=== PATIENT | male | born 1995 | race Caucasian/White ===

== ENCOUNTER 2017-04-03 10:33 | Inpatient (IN) | payer OTHER ==
[~2017-04-03] VITALS: Ht 177.8 cm; Wt 109.5 kg
--- NOTE | 2017-04-09 13:22 | MH ---
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 He is admitted at this time for correction of the above-mentioned problem. PAST MEDICAL HISTORY Past surgical history reveals that he has had third molars removed in the past. He has also had a surgical rapid palatal expansion performed in the past without difficulty. He had normal and development. MEDICATION He takes no medications. ALLERGIES He has no allergies. FAMILY HISTORY His mother is alive and well. Father is . 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 He does not use tobacco, alcohol or drugs. REVIEW OF SYSTEMS HEAD: No history of seizure disorders. He did have a concussion in 2006, he gets headaches two to four times a month. EYES: He wears contact lenses. He does not have double vision, tearing or blind spots. NOSE: No history of bleeding, obstruction, discharge. MOUTH: Mouth problems as noted above. THROAT: No hoarseness, soreness, thyroid disease. LYMPH NODES: No local or general glandular enlargement. RESPIRATORY: No history of tuberculosis, shortness of breath, cough, asthma, COPD or sleep apnea. CARDIOVASCULAR: No history of precordial pain, hypertension or hypotension. No heart murmur, shortness of breath on exertion, edema, phlebitis, heart surgery or rheumatic fever. GASTROINTESTINAL: No history of gallbladder disease, peptic ulcer disease. GENITOURINARY: No history of urinary tract infections, kidney disease or venereal disease. MUSCULOSKELETAL: No pain, limitation of movement or muscular weakness. ENDOCRINE: No history of diabetes, hormone therapy, growth abnormality. HEMATOLOGICAL: No history of anemia, bleeding tendencies, Rh incompatibility. NEUROLOGIC: No sensory or motor disturbances. PHYSICAL EXAMINATION GENERAL: Physical examination reveals alert, oriented male. VITAL SIGNS: He is 5 feet 10 inches, he weighs 236 pounds and blood pressure is 131/83, 90% O2 sat on room air. His pulse is 78 and regular. HEAD: Head is normocephalic. There are no masses noted. NECK: Neck is supple. There is no thyroid enlargement. EYES: ROSHNI. Fundi benign. EARS: TMs intact. MOUTH: The patient has maxillary hypoplasia and mandibular asymmetry. CHEST: Chest is clear to auscultation. HEART: Regular sinus rhythm without thrill, murmur or gallop. Peripheral pulses are full and equal throughout. ABDOMEN: Abdomen is soft. There are no masses or organomegaly present. Bowel sounds are present. CRANIAL NERVES: Cranial nerves II-XII intact. REFLEXES: Deep tendon reflexes are symmetric and physiologic. ASSESSMENT The patient is informed of the plan for orthognathic surgery. He understands the possibility of trigeminal nerve paresthesia in the areas of surgery and he accepts the treatment plan. RIKKI Live /12:50 PM /1:10 PM
[2017-04-10] MEDS ORDERED: BACITRACIN TOP OINT 15 GM TUBE ONE (10:49)
[2017-04-10] MEDS ORDERED: MICROFIBRILLAR COLLAGEN HEMOSTAT 1 GM PKT ONE (10:49)
[2017-04-10] MEDS ORDERED: THROMBIN (TOPICAL) 5,000 UNIT VIAL ONE (10:49)
[2017-04-10] MEDS ORDERED: LIDOCAINE 1%/EPINEPHrine 1:100,000 SOLN 20 ML VIAL ONE (10:49)
[2017-04-10] MEDS ORDERED: methylPREDNISolone SOD SUCC 125 MG/2 ML VIAL ONE (10:49)
[2017-04-10] MEDS ORDERED: CHLORHEXIDINE GLUCONATE 0.12% 15 ML CUP ONE (10:49)
[2017-04-10] MEDS ORDERED: CHLORHEXIDINE GLUCONATE 2 % 1 PACK (2 CLOTHS) TOPICAL PRN (11:00)
[2017-04-10] MEDS ORDERED: LACTATED RINGER'S 1000 ML IV PRN (11:00)
[2017-04-10] MEDS ORDERED: METOPROLOL TARTRATE 25 MG TAB PO PRN (11:00)
[2017-04-10] MEDS ORDERED: INSULIN HUMAN REGULAR 1,000 UNITS/10 ML VIAL SQ PRN (11:00)
[2017-04-10] MEDS ORDERED: SODIUM CHLORID 0.9% 500 ML IV PRN (11:00)
[2017-04-10] MEDS ORDERED: POVIDONE IODINE 5% (ANTISEPSIS KIT) 4 APPLICATIONS EACH NARE PRN (11:00)
[2017-04-10] MEDS ORDERED: ceFAZolin 1,000 MG/NS 100 ML IV SCH ×2 (11:00)
[2017-04-10 11:31] VITALS: BP 151/97; PULSE 94; RESP 18; TEMP 98.6; O2SAT 97
[2017-04-10] MEDS ORDERED: NITROGLYCERIN 50 MG/DEXTROSE 5% SOLN 250 ML BTL IV ONE (12:00)
[2017-04-10] MEDS ORDERED: PROPOFOL 200 MG/20 ML AMP IV ONE (12:00)
[2017-04-10] MEDS ORDERED: NEOSTIGMINE 3 MG/3 ML SYR IV ONE (12:00)
[2017-04-10] MEDS ORDERED: SODIUM CHLORID 0.9% 500 ML INJ 500 ML IV ONE (12:00)
[2017-04-10] MEDS ORDERED: PHENYLEPH/NS 1000 MCG/10 ML SYR IV ONE (12:00)
[2017-04-10] MEDS ORDERED: ONDANSETRON HCL 4 MG/2 ML VIAL IV PUSH ONE (12:00)
[2017-04-10] MEDS ORDERED: LACTATED RINGER'S 1000 ML INJ 2,000 ML IV ONE (12:00)
[2017-04-10] MEDS ORDERED: MIDAZOLAM HCL 2 MG/2 ML VIAL ONE (12:52)
[2017-04-10] MEDS ORDERED: FAMOTIDINE 20 MG/2 ML VIAL ONE (12:52)
[2017-04-10] MEDS ORDERED: DEXAMETHASONE SOD PHOS 4 MG/ML VIAL ONE (12:52)
[2017-04-10] MEDS ORDERED: HYDROmorphone HCL PF 2 MG/ML VIAL ONE (14:11)
[2017-04-10] MEDS ORDERED: fentaNYL CITRATE 250 MCG/5 ML AMP ONE ×2 (14:12)
[2017-04-10] MEDS ORDERED: ACETAMINOPHEN 1000 MG/100 ML VIAL IV ONE (15:47)
[2017-04-10] MEDS ORDERED: MICROFIBRILLAR COLLAGEN HEMOSTAT 70 X 35 MM BANDAGE ONE ×2 (16:34→17:12)
[2017-04-10] MEDS ORDERED: BALANCED SALT SOLN OPHT IRRIG 15 ML BTL ONE (16:45)
[2017-04-10] MEDS ORDERED: MORPHINE SULFATE 30 MG/30 ML PCA ONE (18:16)
[2017-04-10] MEDS ORDERED: D5-1/2 NS + KCL 20 MEQ INJ 1,000 ML ONE (18:16)
--- NOTE | 2017-04-10 18:17 | HHI.PR ---
Immediate Post Op Note Procedure Date: Apr 10, 2017 Pre Op Diagnosis: maxillary hypoplasia, mandibular asymmetry Post Op Diagnosis: ree Surgeon: Dr. Gabriel Jasso Aircrewman(s): Dr. Lewis Garcia Procedure: [place] 1 Maxillary Osteotomy Intraoral Vertical Ramus Osteotomy Complications: none Estimated blood loss: 400cc Anesthesia: General, Local (2%lidocaine with 1:100,000 epi approx 10 cc) Drains: Other (NG Tube) Patient to: PACU Patient Condition: Good Date/Time of Procedure: SEE SURGICAL CARE RECORD Lewis Garcia DMD Apr 10, 2017 18:17
[2017-04-10] MEDS ORDERED: *PROMETHAZINE 25 MG/ML VIAL PERIprocedural use ONLY ONE (19:01)
[2017-04-10] MEDS ORDERED: ACETAMINOPHEN 650 MG SUPP RECTAL PRN (19:30)
[2017-04-10] MEDS ORDERED: NALOXONE HCL 0.4 MG/ML AMP IV PRN (19:30)
[2017-04-10] MEDS ORDERED: ACETAMINOPHEN 325MG/HYDROcodone 7.5MG/15ML UDC PO PRN (19:30)
[2017-04-10] MEDS ORDERED: ACETAMINOPHEN 325 MG TAB PO PRN (19:30)
[2017-04-10] MEDS ORDERED: DO NOT ADM ANY ANTICOAGULANT DRUGS PRN (19:45)
[2017-04-10 20:00] VITALS: BP 154/74; PULSE 103; PULSE 60; RESP 16; TEMP 98.8; O2SAT 98
[2017-04-10] MEDS: D5-1/2 NS + KCL 20 MEQ INJ 1,000 ML IV SCH (20:00)
[2017-04-10] MEDS: methylPREDNISolone SOD SUCC 125 MG/2 ML VIAL IV SCH (20:27)
[2017-04-10] MEDS: MORPHINE SULFATE 30 MG/30 ML PCA IV SCH (20:27)
[2017-04-10] MEDS: ceFAZolin 1,000 MG/NS 100 ML IV SCH ×2 (20:27)
[2017-04-10 22:00] VITALS: BP 155/88; PULSE 88; RESP 16; TEMP 98.6; O2SAT 95
[2017-04-10] MEDS: PHENYLEPHRINE 2.5 MG/BROMPHENIRAMINE 1 MG PER 5 ML UDC PO SCH (22:00)
[2017-04-10] MEDS: PCA - TOTAL MG MORPHINE DELIVERED PER SHIFT SCH (22:00)
[2017-04-10] MEDS: BACITRACIN/POLYMYXIN B 15 GM TUBE TOPICAL SCH (23:18)
[2017-04-10] MEDS: OXYMETAZOLINE HCL 0.05% 15 ML NASAL SPRAY NASAL SCH (23:18)
[2017-04-11] VITALS (12 sets, daily range): BP systolic 117–140; BP diastolic 64–88; PULSE 83–115; RESP 16–26; TEMP 97.9–99.5; O2SAT 92–96
[2017-04-11] MEDS: methylPREDNISolone SOD SUCC 125 MG/2 ML VIAL IV SCH ×3 (02:07→14:57)
[2017-04-11] MEDS: ONDANSETRON HCL 4 MG/2 ML VIAL IV PUSH PRN ×2 (02:23→09:13)
[2017-04-11] MEDS: D5-1/2 NS + KCL 20 MEQ INJ 1,000 ML IV SCH ×3 (02:28→23:06)
[2017-04-11] MEDS: ceFAZolin 1,000 MG/NS 100 ML IV SCH ×6 (04:08→20:26)
[2017-04-11] MEDS: PCA - TOTAL MG MORPHINE DELIVERED PER SHIFT SCH ×3 (06:00→22:00)
[2017-04-11] MEDS: PHENYLEPHRINE 2.5 MG/BROMPHENIRAMINE 1 MG PER 5 ML UDC PO SCH (06:00)
[2017-04-11] MEDS: BACITRACIN/POLYMYXIN B 15 GM TUBE TOPICAL SCH ×3 (06:00→17:53)
[2017-04-11] MEDS: MORPHINE SULFATE 30 MG/30 ML PCA IV SCH (07:33)
[2017-04-11] MEDS: OXYMETAZOLINE HCL 0.05% 15 ML NASAL SPRAY NASAL SCH ×2 (09:00→12:39)
[2017-04-11] MEDS: CHLORHEXIDINE GLUCONATE 0.12% 15 ML CUP SWISH-SPIT SCH ×3 (09:30→17:53)
[2017-04-11] MEDS: ACETAMINOPHEN 325MG/HYDROcodone 7.5MG/15ML UDC PO PRN ×3 (10:09→21:31)
[2017-04-12] VITALS (7 sets, daily range): BP systolic 128–141; BP diastolic 58–84; PULSE 102–120; RESP 16–24; TEMP 98.1–99.7; O2SAT 93–95
[2017-04-12] MEDS: ceFAZolin 1,000 MG/NS 100 ML IV SCH ×2 (03:04)
[2017-04-12] MEDS: ACETAMINOPHEN 325MG/HYDROcodone 7.5MG/15ML UDC PO PRN ×2 (03:05→09:11)
[2017-04-12] MEDS: PCA - TOTAL MG MORPHINE DELIVERED PER SHIFT SCH (05:47)
[2017-04-12] MEDS: BACITRACIN/POLYMYXIN B 15 GM TUBE TOPICAL SCH ×2 (05:48)
[2017-04-12] MEDS: OXYMETAZOLINE HCL 0.05% 15 ML NASAL SPRAY NASAL SCH (09:11)
[2017-04-12] MEDS: CHLORHEXIDINE GLUCONATE 0.12% 15 ML CUP SWISH-SPIT SCH (09:11)
--- NOTE | 2017-04-13 10:44 | MP ---
cc: FINN MCNAIR DDS DATE OF SURGERY: 04/12/2017 PREOPERATIVE DIAGNOSIS Maxillary hypoplasia, mandibular asymmetry. POSTOPERATIVE DIAGNOSIS Maxillary hypoplasia, mandibular asymmetry. OPERATIVE PROCEDURE PERFORMED [place] I maxillary osteotomy for advancement of the maxilla. Intraoral vertical ramus osteotomy for correction of mandibular asymmetry. SURGEON Dr. Finn Mcnair FLATWORK TIER Dr. Lewis Garcia OPERATIVE PROCEDURE The patient was brought to the operating room and placed on the operating table in supine position. The patient was sedated intravenously and intubated with ease via the nasal route. A Land catheter and A-line were placed. The patient was prepped and draped in the usual manner for an intraoral procedure and a throat pack was placed. 2% Xylocaine with 1:100,000 epinephrine was infiltrated in the maxillary vestibule and the in the ramus area of the mandible. Once this completed a full-thickness mucoperiosteal incision was made 5 mm superior to the mucogingival junction from first molar to first molar in the maxilla. The mucoperiosteal flap was reflected. The lateral wall of the maxilla was identified. The nasal floor was entered and the nasal mucosa was dissected superiorly. Following this a reciprocating saw was used to make a lateral wall cut in the maxilla from the pterygoid plates up to the piriform rim. This was completed bilaterally. Once this was completed chisels were used to separate the medial wall of the maxilla and the pterygoid plates bilaterally. A nasal septal osteotome was used to separate the nasal bones from the maxilla. Once this was completed the maxilla was down-fractured. All bony interferences were removed with the use of a bur on a rotary drill. PRP was placed in the maxillary surgical site. A full thickness mucoperichondrial incision was made with a 15 blade and the mucoperichondrium of the nasal septum was then elevated. Resection of the nasal septum was removed and then this incision was closed with running 4-0 Vicryl sutures. Once this was completed the maxilla was placed in a predetermined position with an acrylic splint and the maxilla was secured in the new position with four 2.0 KLS plates. Once this was completed attention was directed to the mandible. On the right side a full-thickness mucoperiosteal incision was made an electrical cutting knife. This was carried out down to the periosteum and the area of the right ramus of the mandible. The flap was reflected. Van retractors were placed in the sigmoid notch and at the inferior border at the angle of the mandible. An oscillating saw was then used to section the mandible posterior to the lingula and the inferior alveolar nerve. Once this was completed the identical procedure was carried out on the left-hand side. The patient's throat pack was then removed and he was placed in intermaxillary fixation. PRP was injected into the mandibular surgical sites. Avitene was also used for bleeding control. Once this was completed the incision line of the mandible was closed with running 4-0 chromic suture. Attention was directed to the maxilla. An alar cinch was carried through the anterior nasal spine thus securing the nasal alar complex with 3-0 Tycron suture. A V-Y closure was carried out on the maxillary horizontal incision with 4-0 Vicryl sutures and then the final incision was closed with running 4-0 chromic suture. The patient was then taken to the recovery room in good condition. RIKKI Live /9:51 AM /10:37 AM
== END 2017-04-12 11:04 | disposition home or self-care (01) | DRG 132 ==
LOC: HSDI 04-10 10:41 → EDSTATUS 04-10 13:00 → HPIC 04-10 19:43
PROVIDERS: ADMIT Dentist Oral and Maxillofacial Surgery; ATTEND Dentist Oral and Maxillofacial Surgery
PROC: 0NST04Z Reposition Right Mandible with Internal Fixation Device, Open Approach (ICD-10-PCS; 2017-04-10)
PROC: 0NSS04Z (ICD-10-PCS; 2017-04-10)
PROC: 0NSV04Z Reposition Left Mandible with Internal Fixation Device, Open Approach (ICD-10-PCS; 2017-04-10)
PROC: 0NSR04Z Reposition Maxilla with Internal Fixation Device, Open Approach (ICD-10-PCS; principal; 2017-04-10 12:59)
DX: M26.12 Other jaw asymmetry (principal); M26.02 Maxillary hypoplasia
CPT/HCPCS: C1713; J0131; J0690; J1100; J1170; J2250; J2270; J2370; J2405; J2550; J2710; J2930; J3010; J3480; J7040; J7120

== ENCOUNTER 2017-05-28 09:50 | Emergency (ER) | payer OTHER ==
[~2017-05-28] VITALS: Ht 177.8 cm; Wt 95.0 kg
[2017-05-28 09:53] VITALS: BP 156/91; PULSE 89; RESP 20; TEMP 98.3; O2SAT 99
[2017-05-28 10:31] VITALS: BP 148/90; PULSE 72; RESP 16; O2SAT 100
[2017-05-28 10:35] VITALS: O2SAT 100
[2017-05-28] MEDS ORDERED: SODIUM CHLOR 0.9% 1000 ML INJ 1,000 ML IV SCH (10:36)
--- NOTE | 2017-05-28 10:43 | PD ---
HPI Chief Complaint: Abdominal Pain Time Seen by Provider: 10:32 Travel History International Travel<30 days: No Contact w/Intl Traveler<30days: No Traveled to known affect area: No History of Present Illness HPI 21-year-old male complains of abdominal pain and back pain. Patient states that he started having mid back pain around 6:00 this morning. Patient took Flexeril and Lortab without much relief of the pain. Started having epigastric abdominal pain subsequently. Patient stated pain is burning pain sharp pain with radiation to the back. Patient denies any fever chills. Patient states that he has nausea but no vomiting or diarrhea. Patient denies any dysuria or frequency. Patient denies any GI issues in the past. Patient is not on a medication. Patient denies any alcohol or illicit drug abuse. PFSH Past Medical History Cancer: No Cardiovascular Problems: No Diabetes: No Diminished Hearing: No Endocrine: No Genitourinary: No Hepatitis: No Hiatal Hernia: No Immune Disorder: No Musculoskeletal: No Neurologic: Yes (concussion at 14 years old) Psychiatric: No Reproductive: No Respiratory: No Thyroid Disease: No Past Surgical History Abdominal Surgery: No AICD: No Body Medical Devices: none Cardiac Surgery: No Ear Surgery: No Endocrine Surgery: No Eye Surgery: No Genitourinary Surgery: No Gynecologic Surgery: No Joint Replacement: No Pacemaker: No Thoracic Surgery: No Social History Alcohol Use: No Tobacco Use: No Substance Use: No Allergies-Medications (Allergen,Severity, Reaction): Coded Allergies: No Known Allergies (Unverified , 05/28/17) Reported Meds & Prescriptions Reported Meds & Active Scripts Active No Active Prescriptions or Reported Medications Review of Systems General / Constitutional: No: Fever Eyes: No: Visual changes HENT: No: Headaches Cardiovascular: No: Chest Pain or Discomfort Respiratory: No: Shortness of Breath Gastrointestinal: Positive: Nausea, Abdominal Pain Genitourinary: No: Dysuria Musculoskeletal: No: Pain Skin: No Rash Neurologic: No: Weakness Psychiatric: No: Depression Endocrine: No: Polydipsia Hematologic/Lymphatic: No: Easy Bruising Physical Exam Narrative GENERAL: Well-nourished, well-developed patient. SKIN: Focused skin assessment warm/dry. HEAD: Normocephalic. EYES: No scleral icterus. No injection or drainage. NECK: Supple, trachea midline. No JVD or lymphadenopathy. CARDIOVASCULAR: Regular rate and rhythm without murmurs, gallops, or rubs. RESPIRATORY: Breath sounds equal bilaterally. No accessory muscle use. GASTROINTESTINAL: Abdomen soft, nondistended. Moderate tenderness on palpation epigastric area. No rebound tenderness. No mass. MUSCULOSKELETAL: No cyanosis, or edema. BACK: Nontender without obvious deformity. No CVA tenderness. Neurologic exam normal. Data Data Last Documented VS Vital Signs Date Time Temp Pulse Resp B/P Pulse Ox O2 Delivery O2 Flow Rate FiO2 05/28/17 10:31 72 16 148/90 100 Room Air 05/28/17 09:53 98.3 Orders Complete Blood Count With Diff (05/28/17 10:36) Comprehensive Metabolic Panel (05/28/17 10:36) Lipase (05/28/17 10:36) Urinalysis - C+S If Indicated (05/28/17 10:36) Ct Abd/Pel W Iv Contrast(Rout) (05/28/17 10:36) Iv Access Insert/Monitor (05/28/17 10:36) Ecg Monitoring (05/28/17 10:36) Oximetry (05/28/17 10:36) Morphine Inj (Morphine Inj) (05/28/17 10:45) Ondansetron Inj (Zofran Inj) (05/28/17 10:45) Pantoprazole Inj (Protonix Inj) (05/28/17 10:45) Sodium Chlor 0.9% 1000 Ml Inj (Ns 1000 M (05/28/17 10:36) Sodium Chloride 0.9% Flush (Ns Flush) (05/28/17 10:45) Al-Mag Hy-Si 40-40-4 Mg/Ml Liq (Mag-Al P (05/28/17 10:45) Pxltb-Eulflb-Cfvwsu-Pb Liq ( Liq (05/28/17 10:45) Iohexol 350 Inj (Omnipaque 350 Inj) (05/28/17 12:09) Labs Laboratory Tests Test 05/28/17 05/28/17 10:40 10:50 White Blood Count 6.1 TH/MM3 Red Blood Count 5.18 MIL/MM3 Hemoglobin 15.7 GM/DL Hematocrit 45.0 % Mean Corpuscular Volume 86.8 FL Mean Corpuscular Hemoglobin 30.3 PG Mean Corpuscular Hemoglobin 34.9 % Concent Red Cell Distribution Width 13.0 % Platelet Count 170 TH/MM3 Mean Platelet Volume 9.8 FL Neutrophils (%) (Auto) 58.6 % Lymphocytes (%) (Auto) 32.3 % Monocytes (%) (Auto) 5.9 % Eosinophils (%) (Auto) 2.7 % Basophils (%) (Auto) 0.5 % Neutrophils # (Auto) 3.6 TH/MM3 Lymphocytes # (Auto) 2.0 TH/MM3 Monocytes # (Auto) 0.4 TH/MM3 Eosinophils # (Auto) 0.2 TH/MM3 Basophils # (Auto) 0.0 TH/MM3 CBC Comment DIFF FINAL Differential Comment Sodium Level 142 MEQ/L Potassium Level 3.6 MEQ/L Chloride Level 107 MEQ/L Carbon Dioxide Level 26.3 MEQ/L Anion Gap 9 MEQ/L Blood Urea Nitrogen 10 MG/DL Creatinine 0.80 MG/DL Estimat Glomerular Filtration 122 ML/MIN Rate Random Glucose 100 MG/DL Calcium Level 9.3 MG/DL Total Bilirubin 1.2 MG/DL Aspartate Amino Transf 22 U/L (AST/SGOT) Alanine Aminotransferase 71 U/L (ALT/SGPT) Alkaline Phosphatase 127 U/L Total Protein 7.8 GM/DL Albumin 4.2 GM/DL Lipase 229 U/L Urine Color YELLOW Urine Turbidity CLEAR Urine pH 6.0 Urine Specific [place] 1.026 Urine Protein TRACE mg/dL Urine Glucose (UA) NEG mg/dL Urine Ketones NEG mg/dL Urine Occult Blood NEG Urine Nitrite NEG Urine Bilirubin NEG Urine Urobilinogen LESS THAN 2.0 MG/DL Urine Leukocyte Esterase NEG Urine RBC LESS THAN 1 /hpf Urine WBC LESS THAN 1 /hpf Urine Mucus FEW /lpf Microscopic Urinalysis Comment CULT NOT INDICATED MDM Medical Decision Making Medical Screen Exam Complete: Yes Emergency Medical Condition: Yes Interpretation(s) Last Impressions Abdomen/Pelvis CT 05/28/17 1036 Signed Impressions: Service Date/Time: Sunday, May 28, 2017 11:59 - CONCLUSION: No acute disease. Sharan Wilks MD 1300 p.m. CBC within normal limit. CMP within normal limit. Total bili 1.2. Alkaline phosphatase 127. UA is negative. Differential Diagnosis Differential diagnosis including gastritis, PUD, pancreatitis, cholecystitis, colitis, UTI, pyelonephritis, nephrolithiasis. Narrative Course 21-year-old male with epigastric abdominal pain with radiation to the back. Diagnosis Primary Impression: Abdominal pain Qualified Code: R10.13 - Epigastric pain Additional Impression: Gastritis Qualified Code: K29.00 - Acute gastritis without hemorrhage, unspecified gastritis type Patient Instructions: General Instructions Additional Instructions: Take medications as directed. Follow up with GI specialist if persistent problem. Return if worse. Med/Other Pt SpecificInfo: Prescription(s) given Scripts Dicyclomine (Bentyl)10 Mg Cap10 Mg PO TID PRN (Bowel Management) #21 CAP Ref 0 Prov:Zeferino Newton MD 05/28/17 Sucralfate (Carafate)1 Gm Tab1 Gm PO QID #120 TAB Ref 0 On empty stomach Prov:Zeferino Newton MD 05/28/17 Pantoprazole (Protonix)20 Mg Tab20 Mg PO DAILY #30 TAB Prov:Zeferino Newton MD 05/28/17 Disposition: 01 DISCHARGE HOME Condition: Stable Zeferino Newton MD May 28, 2017 10:43
[2017-05-28] MEDS ORDERED: ALUMINUM/MAGNESIUM/SIMETH 30 ML CUP PO ONE (10:45)
[2017-05-28] MEDS ORDERED: PANTOPRAZOLE SODIUM 40 MG VIAL IVP ONE (10:45)
[2017-05-28] MEDS ORDERED: ONDANSETRON HCL 4 MG/2 ML VIAL IVP ONE (10:45)
[2017-05-28] MEDS ORDERED: SODIUM CHLORIDE 0.9% FLUSH 10 ML FLUSH IV FLUSH PRN (10:45)
[2017-05-28] MEDS ORDERED: MORPHINE SULFATE 4 MG/ML INJ IV PUSH ONE (10:45)
[2017-05-28] MEDS ORDERED: ATROPINE/SCOPOLAM/HYOSCYAM/PB ELIXIR 10 ML CUP PO ONE (10:45)
[2017-05-28 11:09] LABS: AUTOMATED NEUTROPHIL # 3.6 TH/MM3 (1.8-7.7); BASOPHIL % 0.5 % (0.0-2.0); EOSINOPHIL # 0.2 TH/MM3 (0-0.4); EOSINOPHIL % 2.7 % (0.0-4.0); HEMO FLAGS DIFF FINAL; LYMPH % 32.3 % (9.0-44.0); MEAN CELL VOLUME 86.8 FL (80.0-100.0); MEAN CORPUSCULAR HEMOGLOBIN 30.3 PG (27.0-34.0); MEAN CORPUSCULAR HGB CONC 34.9 % (32.0-36.0); MONO % 5.9 % (0.0-8.0); NEUT % 58.6 % (16.0-70.0); PLATELET COUNT 170 TH/MM3 (150-450); RED BLOOD COUNT 5.18 MIL/MM3 (4.50-5.90); WHITE BLOOD COUNT 6.1 TH/MM3 (4.0-11.0)
[2017-05-28 11:12] LABS: BLOOD, URINE NEG (NEG); COMMENT (UR) CULT NOT INDICATED; GLUCOSE,URINE NEG (NEG); KETONE, URINE NEG (NEG); MUCUS URINE FEW /lpf (OCC); NITRITE,URINE NEG (NEG); URINE COLOR YELLOW (YELLW/STRAW)
[2017-05-28 11:13] LABS: CULTURE IF INDICATED CULT NOT INDICATED
[2017-05-28 11:30] LABS: ALT (GPT) 71 U/L (12-78); ANION GAP 9 MEQ/L (5-15); AST (GOT) 22 U/L (15-37); BICARBONATE 26.3 MEQ/L (21.0-32.0); BLOOD UREA NITROGEN 10 MG/DL (7-18); CHLORIDE 107 MEQ/L (98-107); GLOMERULAR FILTRATION RATE 122 ML/MIN (>89); POTASSIUM 3.6 MEQ/L (3.5-5.1); SODIUM (NA) 142 MEQ/L (136-145)
[2017-05-28 11:33] LABS: ALKALINE PHOSPHATASE 127 U/L (45-117); TOTAL BILIRUBIN ADULT 1.2 MG/DL (0.2-1.0)
[2017-05-28] MEDS ORDERED: IOHEXOL 350 MG/ML 10 ML VIAL (for RAD DIAG) IV ONE (12:09)
--- NOTE | 2017-05-28 12:24 | RADRPT ---
EXAM DATE/TIME: 05/28/2017 11:59 [facility] COMPARISON: No previous studies available for comparison. INDICATIONS : Epigastric pain and nausea today. IV CONTRAST: 71 cc Omnipaque 350 (iohexol) IV ORAL CONTRAST: No oral contrast ingested. RADIATION DOSE: 10.03 CTDIvol (mGy) MEDICAL HISTORY : None SURGICAL HISTORY : None. ENCOUNTER: Initial ACUITY: 1 day PAIN SCALE: 9/10 LOCATION: epigastric abdomen TECHNIQUE: Volumetric scanning of the abdomen and pelvis was performed. Using automated exposure control and ad justment of the mA and/or kV according to patient size, radiation dose was kept as low as reasonably achievable to obtain optimal diagnostic quality images. DICOM format image data is available electro nically for review and comparison. FINDINGS: LOWER LUNGS: The visualized lower lungs are clear. LIVER: Homogeneous density without lesion. There is no dilation of the biliary tree. No calcified gallston es. SPLEEN: Normal size without lesion. PANCREAS: Within normal limits. KIDNEYS: Normal in size and shape. There is no mass, stone or hydronephrosis. ADRENAL GLANDS: Within normal limits. VASCULAR: There is no aortic aneurysm. BOWEL/MESENTERY: The stomach, small bowel, and colon demonstrate no acute abnormality. There is no free intraperitone al air or fluid. ABDOMINAL WALL: Within normal limits. RETROPERITONEUM: There is no lymphadenopathy. BLADDER: No wall thickening or mass. REPRODUCTIVE: Within normal limits. INGUINAL: There is no lymphadenopathy or hernia. MUSCULOSKELETAL: Within normal limits for patient age. CONCLUSION: No acute disease. Sharan Wilks MD on May 28, 2017 at 12:21 Board Certified Radiologist. This report was verified electronically.
[2017-05-28] MEDS ORDERED: PANT20 PO (13:06)
[2017-05-28] MEDS ORDERED: DICY10 PO (13:06)
[2017-05-28] MEDS ORDERED: CARA1TAB6 PO (13:06)
[2017-05-28 13:20] VITALS: BP 119/72
== END 2017-05-28 13:22 | disposition home or self-care (01) ==
LOC: NEPE 09:50
DX: K29.00 Acute gastritis without bleeding (principal)
CPT/HCPCS: 74177; 80053; 81001; 83690; 85025; 96374; 96375; 99285; C9113; J2270; J2405; J7030; Q9967

== ENCOUNTER 2017-11-24 05:22 | Inpatient (IN) | payer OTHER ==
[~2017-11-24] VITALS: Ht 177.8 cm; Wt 102.2 kg
[2017-11-24] VITALS (8 sets, daily range): BP systolic 139–173; BP diastolic 74–110; PULSE 73–99; RESP 16–18; TEMP 97–99.5; O2SAT 95–99
[~2017-11-24 05:22] MED LIST: CARA1TAB6 PO; DICY10 PO; PANT20 PO
[2017-11-24] MEDS ORDERED: SODIUM CHLORIDE 0.9% FLUSH 10 ML FLUSH IV FLUSH PRN ×3 (05:30→08:45)
[2017-11-24] MEDS ORDERED: SODIUM CHLOR 0.9% 1000 ML INJ 1,000 ML IV SCH (05:58)
[2017-11-24 06:00] LABS: AUTOMATED NEUTROPHIL # 7.6 TH/MM3 (1.8-7.7); BASOPHIL % 0.3 % (0.0-2.0); EOSINOPHIL # 0.1 TH/MM3 (0-0.4); EOSINOPHIL % 1.2 % (0.0-4.0); HEMOGLOBIN 15.9 GM/DL (13.0-17.0); LYMPH % 18.4 % (9.0-44.0); LYMPHOCYTE # 1.9 TH/MM3 (1.0-4.8); MEAN CELL VOLUME 87.3 FL (80.0-100.0); MEAN CORPUSCULAR HEMOGLOBIN 30.8 PG (27.0-34.0); MEAN CORPUSCULAR HGB CONC 35.3 % (32.0-36.0); MEAN PLATELET VOLUME 8.9 FL (7.0-11.0); MONO % 6.4 % (0.0-8.0); MONOCYTE # 0.7 TH/MM3 (0-0.9); NEUT % 73.7 % (16.0-70.0); PLATELET COUNT 193 TH/MM3 (150-450); RED BLOOD COUNT 5.16 MIL/MM3 (4.50-5.90); RED CELL DISTRIBUTION WIDTH 13.1 % (11.6-17.2); WHITE BLOOD COUNT 10.2 TH/MM3 (4.0-11.0)
[2017-11-24] MEDS ORDERED: LIDOCAINE VISCOUS 2% SOLN 15 ML UDC PO ONE (06:00)
[2017-11-24] MEDS ORDERED: ONDANSETRON HCL 4 MG/2 ML VIAL IVP ONE (06:00)
[2017-11-24] MEDS ORDERED: ALUMINUM/MAGNESIUM/SIMETH 30 ML CUP PO ONE (06:00)
[2017-11-24 06:22] LABS: ALBUMIN 4.2 GM/DL (3.4-5.0); AST (GOT) 193 U/L (15-37); BICARBONATE 22.3 MEQ/L (21.0-32.0); BLOOD UREA NITROGEN 16 MG/DL (7-18); CALCIUM 9.1 MG/DL (8.5-10.1); CHLORIDE 108 MEQ/L (98-107); CREATININE 0.97 MG/DL (0.60-1.30); GLOMERULAR FILTRATION RATE 98 ML/MIN (>89); GLUCOSE,RANDOM 131 MG/DL (74-106); SODIUM (NA) 140 MEQ/L (136-145)
[2017-11-24 06:26] LABS: ALKALINE PHOSPHATASE 129 U/L (45-117); ALT (GPT) 196 U/L (12-78); TOTAL BILIRUBIN ADULT 2.2 MG/DL (0.2-1.0); TOTAL PROTEIN 7.5 GM/DL (6.4-8.2)
[2017-11-24] MEDS ORDERED: MORPHINE SULFATE 2 MG/ML INJ IV PUSH ONE ×4 (06:30→08:45)
[2017-11-24] MEDS ORDERED: PROMETHAZINE INJ 25 MG/ML VIAL IM ONE ×2 (07:00→07:15)
[2017-11-24] MEDS ORDERED: ONDANSETRON HCL 4 MG/2 ML VIAL IV PUSH ONE (07:00)
--- NOTE | 2017-11-24 07:04 | PD ---
HPI Chief Complaint: GI Complaint Time Seen by Provider: 05:50 Travel History International Travel<30 days: No Contact w/Intl Traveler<30days: No Traveled to known affect area: No History of Present Illness HPI This is a 21-year-old male presents emergency department with epigastric abdominal pain. He has had this on and off for some time, had a complete workup here approximately 9 months ago including CAT scan and blood work which was reassuring. He cannot think of any alleviating or exacerbating factors but he states his mother had to have her gallbladder out and wonders if he is having gallbladder problems. Last time he was placed on GI prophylaxis including sucralfate and this did control his pain quite substantially. He states the pain started in the middle the night and has been gradually worsening. 2 episodes of emesis nonbloody and nonbilious prior to arrival, he is feeling fairly nauseous, states the pain is fairly intense, epigastric, nonradiating, associated with nausea and vomiting, no alleviating or exacerbating factors PFSH Past Medical History Medical History: Denies Significant Hx Cancer: No Cardiovascular Problems: No Diabetes: No Diminished Hearing: No Endocrine: No Genitourinary: No Hepatitis: No Hiatal Hernia: No Immune Disorder: No Musculoskeletal: No Neurologic: Yes (concussion at 14 years old) Psychiatric: No Reproductive: No Respiratory: No Thyroid Disease: No Tetanus Vaccination: Unknown Influenza Vaccination: Yes Past Surgical History Abdominal Surgery: No AICD: No Body Medical Devices: none Cardiac Surgery: No Ear Surgery: No Endocrine Surgery: No Eye Surgery: No Genitourinary Surgery: No Gynecologic Surgery: No Joint Replacement: No Oral Surgery: Yes (palate travel physical therapist, JAW) Pacemaker: No Thoracic Surgery: No Other Surgery: Yes Social History Alcohol Use: No Tobacco Use: No Substance Use: No Allergies-Medications (Allergen,Severity, Reaction): Coded Allergies: No Known Allergies (Unverified Allergy, Unknown, 11/24/17) Reported Meds & Prescriptions Reported Meds & Active Scripts Active Bentyl (Dicyclomine HCl) 10 Mg Cap 10 Mg PO TID PRN Carafate (Sucralfate) 1 Gm Tab 1 Gm PO QID On empty stomach Protonix (Pantoprazole Sodium) 20 Mg Tab 20 Mg PO DAILY Review of Systems Except as stated in HPI: all other systems reviewed are Neg Physical Exam Narrative GENERAL: Well-developed well-nourished, appears somewhat uncomfortable SKIN: Focused skin assessment warm/dry. HEAD: Atraumatic. Normocephalic. EYES: Pupils equal and round. No scleral icterus. No injection or drainage. ENT: No nasal bleeding or discharge. Mucous membranes pink and moist. NECK: Trachea midline. No JVD. CARDIOVASCULAR: Regular rate and rhythm. No murmur appreciated. RESPIRATORY: No accessory muscle use. Clear to auscultation. Breath sounds equal bilaterally. GASTROINTESTINAL: Abdomen soft, moderately tender in the epigastric area, minimally tender in the right upper quadrant, Grande sign is negative, no rebound no percussive tenderness. Bowel sounds normoactive.. MUSCULOSKELETAL: No obvious deformities. No clubbing. No cyanosis. No edema. NEUROLOGICAL: Awake and alert. No obvious cranial nerve deficits. Motor grossly within normal limits. Normal speech. PSYCHIATRIC: Appropriate mood and affect; insight and judgment normal. Data Data Last Documented VS Vital Signs Date Time Temp Pulse Resp B/P (MAP) Pulse Ox O2 Delivery O2 Flow Rate FiO2 11/24/17 05:24 99.5 73 16 173/110 (131) 99 Room Air Orders Orders Complete Blood Count With Diff (11/24/17 05:27) Comprehensive Metabolic Panel (11/24/17 05:27) Lipase (11/24/17 05:27) Urinalysis - C+S If Indicated (11/24/17 05:27) Iv Access Insert/Monitor (11/24/17 05:27) Ecg Monitoring (11/24/17 05:27) Oximetry (11/24/17 05:27) Sodium Chloride 0.9% Flush (Ns Flush) (11/24/17 05:30) Ondansetron Inj (Zofran Inj) (11/24/17 06:00) Sodium Chlor 0.9% 1000 Ml Inj (Ns 1000 M (11/24/17 05:58) Al-Mag Hy-Si 40-40-4 Mg/Ml Liq (Mag-Al P (11/24/17 06:00) Lidocaine 2% Viscous (Xylocaine 2% Visco (11/24/17 06:00) Morphine Inj (Morphine Inj) (11/24/17 06:30) Us Abdomen Gallbladder (11/24/17 06:44) Morphine Inj (Morphine Inj) (11/24/17 07:00) Ondansetron Inj (Zofran Inj) (11/24/17 07:00) Promethazine Inj (Phenergan Inj) (11/24/17 07:00) Labs Laboratory Tests Test 11/24/17 05:35 White Blood Count 10.2 TH/MM3 Red Blood Count 5.16 MIL/MM3 Hemoglobin 15.9 GM/DL Hematocrit 45.0 % Mean Corpuscular Volume 87.3 FL Mean Corpuscular Hemoglobin 30.8 PG Mean Corpuscular Hemoglobin Concent 35.3 % Red Cell Distribution Width 13.1 % Platelet Count 193 TH/MM3 Mean Platelet Volume 8.9 FL Neutrophils (%) (Auto) 73.7 % Lymphocytes (%) (Auto) 18.4 % Monocytes (%) (Auto) 6.4 % Eosinophils (%) (Auto) 1.2 % Basophils (%) (Auto) 0.3 % Neutrophils # (Auto) 7.6 TH/MM3 Lymphocytes # (Auto) 1.9 TH/MM3 Monocytes # (Auto) 0.7 TH/MM3 Eosinophils # (Auto) 0.1 TH/MM3 Basophils # (Auto) 0.0 TH/MM3 CBC Comment DIFF FINAL Differential Comment Blood Urea Nitrogen 16 MG/DL Creatinine 0.97 MG/DL Random Glucose 131 MG/DL Total Protein 7.5 GM/DL Albumin 4.2 GM/DL Calcium Level 9.1 MG/DL Alkaline Phosphatase 129 U/L Aspartate Amino Transf (AST/SGOT) 193 U/L Alanine Aminotransferase (ALT/SGPT) 196 U/L Total Bilirubin 2.2 MG/DL Sodium Level 140 MEQ/L Potassium Level 3.7 MEQ/L Chloride Level 108 MEQ/L Carbon Dioxide Level 22.3 MEQ/L Anion Gap 10 MEQ/L Estimat Glomerular Filtration Rate 98 ML/MIN [facility] Medical Decision Making Medical Screen Exam Complete: Yes Emergency Medical Condition: Yes Differential Diagnosis Gastritis, gastroenteritis, pancreatitis, cholecystitis, acute abdomen unlikely acute abdomen unlikely. Narrative Course Patient room to the emergency department, initially was given GI cocktail and Zofran without any relief at all, morphine 4 mg took the edge off but still with significant pain. An additional 4 mg of morphine as well as Phenergan 12.5 IM were ordered for the patient. At this time the patient's labs are starting to return and new compared to his last workup as an elevation of AST and ALT to 190s each, bilirubin 2.2, alk phos minimally elevated to 129, lipase still pending at this time. The patient was discussed with Dr. Segura to reassess after second round of pain medication and ultrasound of his gallbladder was ordered, consider lipase still pending if positive could be gallstone pancreatitis. Dr. Segura will disposition the patient appropriate Enrique Espitia MD Nov 24, 2017 07:03
--- NOTE | 2017-11-24 07:24 | PD ---
Physical Exam Narrative Received sign out from previous team to follow up lipase and US. Please see previous provider's note for further detail. 21yo M with epigastric abdominal pain since 9:30pm last night. Pain is constant , nonradiating and sharp. Associated with nausea and then vomiting at 2am. Denies any fever, urinary complaints. Pt has been having epigastric pain on and off but never this bad. Pt was evaluated in the ED 9 months ago but never follow up with GI as outpatient. He took protonix and it did not help. Denies any abdominal surgeries. Labs reviewed, no leukocytosis. AST/ALT elevated at 193/196 which is new from prior. Bilirubin also elevated at 2.2. Pt initially given GI cocktail and then zofran and morphine. Pt was still have pain and nausea so previous team ordered another dose of morphine, zofran and promethazine. Pt's nausea resolved after the zofran so we held the promethazine. Pt reevaluated at bedside and is still in a lot of pain. Said the first dose of morphine helped but a little but now pain is worst. Pt has tenderness in epigastric region and positive Grande's sign. No RLQ [place] [address]. US showed dilated common bile duct at 10mm. Cholelithiasis with borderline wall thickening without pericholecystic fluid. Discussed with Dr. Phelps who recommends MRCP, NPO, IVF and he will see the patient. Discussed with Dr. San and accepted to his service. Data Data Last Documented VS Vital Signs Date Time Temp Pulse Resp B/P (MAP) Pulse Ox O2 Delivery O2 Flow Rate FiO2 11/24/17 07:21 79 18 156/97 (116) 99 11/24/17 05:24 99.5 Room Air Orders Orders Complete Blood Count With Diff (11/24/17 05:27) Comprehensive Metabolic Panel (11/24/17 05:27) Lipase (11/24/17 05:27) Urinalysis - C+S If Indicated (11/24/17 05:27) Iv Access Insert/Monitor (11/24/17 05:27) Ecg Monitoring (11/24/17 05:27) Oximetry (11/24/17 05:27) Sodium Chloride 0.9% Flush (Ns Flush) (11/24/17 05:30) Ondansetron Inj (Zofran Inj) (11/24/17 06:00) Sodium Chlor 0.9% 1000 Ml Inj (Ns 1000 M (11/24/17 05:58) Al-Mag Hy-Si 40-40-4 Mg/Ml Liq (Mag-Al P (11/24/17 06:00) Lidocaine 2% Viscous (Xylocaine 2% Visco (11/24/17 06:00) Morphine Inj (Morphine Inj) (11/24/17 06:30) Us Abdomen Gallbladder (11/24/17 06:44) Morphine Inj (Morphine Inj) (11/24/17 07:00) Ondansetron Inj (Zofran Inj) (11/24/17 07:00) Promethazine Inj (Phenergan Inj) (11/24/17 07:00) Promethazine Inj (Phenergan Inj) (11/24/17 07:15) Morphine Inj (Morphine Inj) (11/24/17 07:30) NPO (11/24/17 08:26) D5-1/2 Ns + Kcl 20 Meq Inj (D5-1/2 Ns + (11/24/17 08:30) Morphine Inj (Morphine Inj) (11/24/17 08:45) Admit Order (Ed Use Only) (11/24/17 08:41) Labs Laboratory Tests Test 11/24/17 05:35 White Blood Count 10.2 TH/MM3 Red Blood Count 5.16 MIL/MM3 Hemoglobin 15.9 GM/DL Hematocrit 45.0 % Mean Corpuscular Volume 87.3 FL Mean Corpuscular Hemoglobin 30.8 PG Mean Corpuscular Hemoglobin Concent 35.3 % Red Cell Distribution Width 13.1 % Platelet Count 193 TH/MM3 Mean Platelet Volume 8.9 FL Neutrophils (%) (Auto) 73.7 % Lymphocytes (%) (Auto) 18.4 % Monocytes (%) (Auto) 6.4 % Eosinophils (%) (Auto) 1.2 % Basophils (%) (Auto) 0.3 % Neutrophils # (Auto) 7.6 TH/MM3 Lymphocytes # (Auto) 1.9 TH/MM3 Monocytes # (Auto) 0.7 TH/MM3 Eosinophils # (Auto) 0.1 TH/MM3 Basophils # (Auto) 0.0 TH/MM3 CBC Comment DIFF FINAL Differential Comment Blood Urea Nitrogen 16 MG/DL Creatinine 0.97 MG/DL Random Glucose 131 MG/DL Total Protein 7.5 GM/DL Albumin 4.2 GM/DL Calcium Level 9.1 MG/DL Alkaline Phosphatase 129 U/L Aspartate Amino Transf (AST/SGOT) 193 U/L Alanine Aminotransferase (ALT/SGPT) 196 U/L Total Bilirubin 2.2 MG/DL Sodium Level 140 MEQ/L Potassium Level 3.7 MEQ/L Chloride Level 108 MEQ/L Carbon Dioxide Level 22.3 MEQ/L Anion Gap 10 MEQ/L Estimat Glomerular Filtration Rate 98 ML/MIN Direct Bilirubin 0.7 MG/DL Indirect Bilirubin 1.5 MG/DL Triglycerides Level 127 MG/DL Cholesterol Level 144 MG/DL LDL Cholesterol 76 MG/DL HDL Cholesterol 42.6 MG/DL Cholesterol/HDL Ratio 3.38 RATIO Lipase 65252 U/L MDM Supervised Visit with NADINE: No Diagnosis Primary Impression: Acute pancreatitis Qualified Codes: K85.90 - Acute pancreatitis without necrosis or infection, unspecified Admitting Information Admitting Physician Requests: Admit Petra Segura DO Nov 24, 2017 07:24
--- NOTE | 2017-11-24 08:17 | RADRPT ---
EXAM DATE/TIME: 11/24/2017 07:45 [facility] COMPARISON: No previous studies available for comparison. INDICATIONS : Right upper quadrant pain. MEDICAL HISTORY : Abdominal pain. Nausea/vomiting. Gallstones. 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 ENCOUNTER: Initial ACUITY: 1 day PAIN SCORE: 6/10 LOCATION: Right upper quadrant MEASUREMENTS: LIVER: 17.4 cm length COMMON DUCT: 10 mm RIGHT KIDNEY: 9.7 x 5.5 x 4.9 cm FINDINGS: LIVER: Normal echotexture without focal lesion or ductal dilatation. COMMON DUCT: No intraluminal mass or stone visualized. GALLBLADDER: Contains multiple stones, demonstrates borderline wall thickening measuring 3 mm without pericholecy stic fluid. Patient had a positive sonographic Grande's sign. PANCREAS: The visualized portions are within normal limits. RIGHT KIDNEY: No evidence of hydronephrosis, stone, or mass. CONCLUSION: 1. Cholelithiasis with borderline wall thickening. 2. Common bile duct is dilated. Chance Ragsdale MD on November 24, 2017 at 8:09 Board Certified Radiologist. This report was verified electronically.
[2017-11-24] MEDS ORDERED: D5-1/2 NS + KCL 20 MEQ INJ 1,000 ML IV SCH (08:41)
[2017-11-24] MEDS ORDERED: ACETAMINOPHEN 325 MG TAB PO PRN ×2 (08:45)
[2017-11-24] MEDS ORDERED: MORPHINE SULFATE 4 MG/ML INJ IV PUSH PRN ×2 (08:45)
[2017-11-24] MEDS ORDERED: oxyCODONE/ACETAMINOPHEN 5 MG/325 MG TAB PO PRN (08:45)
[2017-11-24] MEDS ORDERED: BISACODYL 10 MG SUPP RECTAL PRN (08:45)
[2017-11-24] MEDS ORDERED: NALOXONE HCL 0.4 MG/ML AMP IV PUSH PRN (08:45)
[2017-11-24] MEDS ORDERED: LACTULOSE SYRUP 20 GM/30 ML CUP PO PRN (08:45)
[2017-11-24] MEDS ORDERED: METOCLOPRAMIDE HCL 10 MG/2 ML VIAL IV PUSH PRN (08:45)
[2017-11-24] MEDS ORDERED: MAGNESIUM HYDROXIDE SUSP 30 ML CUP PO PRN (08:45)
[2017-11-24] MEDS ORDERED: SENNOSIDES 8.6 MG TAB PO PRN (08:45)
[2017-11-24] MEDS ORDERED: SODIUM CHLORIDE 0.9% FLUSH 10 ML FLUSH IV FLUSH SCH (09:00)
[2017-11-24] MEDS: DOCUSATE SODIUM 50 MG/SENNA 8.6 MG TAB PO SCH ×2 (09:00→19:43)
[2017-11-24] MEDS: D5-1/2 NS + KCL 20 MEQ INJ 1,000 ML IV SCH ×3 (09:01→19:42)
[2017-11-24] MEDS: SODIUM CHLORIDE 0.9% FLUSH 10 ML FLUSH IV FLUSH SCH ×2 (09:02→19:44)
--- NOTE | 2017-11-24 09:09 | PD.CONS ---
HPI History of Present Illness This is a 21 year old male who presented to the ED with complaints of acute severe sharp constant epigastric abdominal pain that shoots straight to the back area approx. since 9:30pm last night. This is associated with nausea and vomiting at 2am. Emesis is described as the food from dinner. Pt has been having epigastric pain on and off but never this bad. Was evaluated in the ED few months back and was given Protonix, Sucralfate and Dicyclomine with good resolution. Yesterday, he took these medications with out relief. Denies any fever, or chills. States the urine is dark this morning. Labs upon arrival with no leukocytosis, elevated AST/ALT elevated at 193/196 which is new from prior , Bilirubin elevated at 2.2[place] [address]. US showed dilated common bile duct at 10mm. Cholelithiasis with borderline wall thickening without pericholecystic fluid. MRCP is ordered and pending. Patient continue to have severe epigastric pain, states Morphing brings the pain down from 10 to 8. His mom had gall bladder disease and had to have it removed. Denies alcohol or illicit drug use. Denies new medications. ([place]) PFSH Past Medical History None Past Surgical History Jaw surg. ([place]) Coded Allergies: No Known Allergies (Unverified Allergy, Unknown, 11/24/17) Medications Current Medications Medications (Trade) Dose Ordered Sig/Karolina Route Start Time Stop Time Status Last Admin Potassium Chloride/Dextrose/ Sod Cl 1,000 ml @ 125 mls/hr Q8H IV 11/24/17 08:30 (Tylenol) 650 mg Q4H PRN PO 11/24/17 08:45 (Zofran Inj) 4 mg Q6H PRN IVP 11/24/17 08:45 UNV (Reglan Inj) 5 mg Q6H PRN IV PUSH 11/24/17 08:45 (Tylenol) 650 mg Q6H PRN PO 11/24/17 08:45 (Percocet 5-325 Mg) 1 tab Q6H PRN PO 11/24/17 08:45 UNV (Percocet 10-325 Mg) 1 tab Q6H PRN PO 11/24/17 08:45 UNV (Morphine Inj) 2 mg Q3H PRN IV PUSH 11/24/17 08:45 (Morphine Inj) 4 mg Q3H PRN IV PUSH 11/24/17 08:45 (Morphine Inj) 4 mg Q1H PRN IV PUSH 11/24/17 08:45 UNV (Morphine Inj) 4 mg Q3H PRN IV PUSH 11/24/17 08:45 UNV (Narcan Inj) 0.4 mg UNSCH PRN IV PUSH 11/24/17 08:45 UNV (Sarah-Colace) 1 tab BID PO 11/24/17 09:00 (Milk Of Magnesia Liq) 30 ml Q12H PRN PO 11/24/17 08:45 (Senokot) 17.2 mg Q12H PRN PO 11/24/17 08:45 UNV (Dulcolax Supp) 10 mg DAILY PRN RECTAL 11/24/17 08:45 (Lactulose Liq) 30 ml DAILY PRN PO 11/24/17 08:45 (NS Flush) 2 ml UNSCH PRN IV FLUSH 11/24/17 08:45 UNV (NS Flush) 2 ml BID IV FLUSH 11/24/17 09:00 UNV Family History No colon cancer, mom had her gall bladder removed Social History No alcohol No smoking No illicit drug use ([place]) Review of Systems Constitutional: DENIES: Fever, Chills Endocrine: DENIES: Polyuria Eyes: DENIES: Double Vision Ears, nose, mouth, throat: DENIES: Hoarseness Respiratory: DENIES: Shortness of breath Cardiovascular: DENIES: Lower Extremity Edema Gastrointestinal: COMPLAINS OF: Abdominal pain, Nausea, Vomiting, DENIES: Black stools, Bloody stools, Diarrhea, Difficulty Swallowing, Anorexia, Odynophagia, Swelling of Abdomen, Heartburn, Hematemesis Genitourinary: DENIES: Hematuria Musculoskeletal: COMPLAINS OF: Back pain Integumentary: DENIES: Jaundice Hematologic/lymphatic: DENIES: Bruising Immunologic/allergic: DENIES: Eczema Neurologic: DENIES: Abnormal gait Psychiatric: DENIES: Anxiety ([place]) GI Exam Vitals I&O Vital Signs Date Time Temp Pulse Resp B/P (MAP) Pulse Ox O2 Delivery O2 Flow Rate FiO2 11/24/17 07:21 79 18 156/97 (116) 99 11/24/17 05:24 99.5 73 16 173/110 (131) 99 Room Air I/O 11/23/17 11/23/17 11/23/17 11/24/17 11/24/17 11/24/17 07:00 15:00 23:00 07:00 15:00 23:00 Intake Total 1000 ml Balance 1000 ml Intake IV Total 1000 ml Imaging Last Impressions Gall Bladder Ultrasound 11/24/17 0644 Signed Impressions: Service Date/Time: Friday, November 24, 2017 07:45 - CONCLUSION: 1. Cholelithiasis with borderline wall thickening. 2. Common bile duct is dilated. Chance Ragsdale MD Laboratory Test 11/24/17 05:35 White Blood Count 10.2 TH/MM3 Red Blood Count 5.16 MIL/MM3 Hemoglobin 15.9 GM/DL Hematocrit 45.0 % Mean Corpuscular Volume 87.3 FL Mean Corpuscular Hemoglobin 30.8 PG Mean Corpuscular Hemoglobin Concent 35.3 % Red Cell Distribution Width 13.1 % Platelet Count 193 TH/MM3 Mean Platelet Volume 8.9 FL Neutrophils (%) (Auto) 73.7 % Lymphocytes (%) (Auto) 18.4 % Monocytes (%) (Auto) 6.4 % Eosinophils (%) (Auto) 1.2 % Basophils (%) (Auto) 0.3 % Neutrophils # (Auto) 7.6 TH/MM3 Lymphocytes # (Auto) 1.9 TH/MM3 Monocytes # (Auto) 0.7 TH/MM3 Eosinophils # (Auto) 0.1 TH/MM3 Basophils # (Auto) 0.0 TH/MM3 CBC Comment DIFF FINAL Differential Comment Blood Urea Nitrogen 16 MG/DL Creatinine 0.97 MG/DL Random Glucose 131 MG/DL Total Protein 7.5 GM/DL Albumin 4.2 GM/DL Calcium Level 9.1 MG/DL Alkaline Phosphatase 129 U/L Aspartate Amino Transf (AST/SGOT) 193 U/L Alanine Aminotransferase (ALT/SGPT) 196 U/L Total Bilirubin 2.2 MG/DL Sodium Level 140 MEQ/L Potassium Level 3.7 MEQ/L Chloride Level 108 MEQ/L Carbon Dioxide Level 22.3 MEQ/L Anion Gap 10 MEQ/L Estimat Glomerular Filtration Rate 98 ML/MIN Lipase 62949 U/L Physical Examination HEENT: normocephalic; atraumatic; no jaundice. Throat is clear. NECK: Neck is supple, no JVD, no lymphadenopathy. CHEST: Chest is clear to auscultation and percussion. CARDIAC: Regular rate and rhythm with no murmur gallop or rubs. ABDOMEN: Soft, nondistended, epigastric pain; no hepatosplenomegaly; bowel sounds are present in all four quadrants. EXTREMITIES: No clubbing, cyanosis, or edema. SKIN: Normal; no rash; no jaundice. 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 ([place]) Assessment and Plan Plan - Acute severe sharp constant epigastric abdominal pain that shoots straight to the back area approx. since 9:30pm last night. This is associated with nausea and vomiting at 2am. elevated AST/ALT elevated at 193/196 which is new from prior, Bilirubin elevated at 2.2. [place] [address]. US showed dilated common bile duct at 10mm. Cholelithiasis with borderline wall thickening without pericholecystic fluid. MRCP is ordered and pending. Patient continue to have severe epigastric pain Findings highly suspicious for choledocholithiasis, will await MrCP - Elevated lipase- no alcohol intake, no hx of pancreatitis, likely biliary pancreatitis Plan: - NPO - Aggressive hydration - Anti nausea meds - pain meds - Await MRCP - Possible ERCP pending results above - Monitor labs - Supportive care - Patient seen and examined by Dr. Romeo and myself and this note is written on his behalf. 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 Has biliary pancreatitis, seems to have passed a stone. Repeat labs this afternoon. NPO with aggressive ivf rehydration. No immediate need for ercp. Surgery consulted for evntual cholecystectomy. Thank you (Ursula Romeo MD) [place] Nov 24, 2017 09:09 Ursula oRmeo MD Nov 24, 2017 11:14
--- NOTE | 2017-11-24 10:31 | RADRPT ---
EXAM DATE/TIME: 11/24/2017 09:55 [facility] COMPARISON: US ABDOMEN - GALLBLADDER, November 24, 2017, 7:45. INDICATIONS : Pancreatitis. MEDICAL HISTORY : None. SURGICAL HISTORY : Jaw surgery. ENCOUNTER: Initial ACUITY: 1 day PAIN SCORE: 5/10 LOCATION: Abdomen. TECHNIQUE: Multiplanar, multisequence magnetic resonance imaging of the abdomen was performed. High-resolution 3D dataset was utilized to reconstruct maximum-intensity projection (MIP) images. FINDINGS: INTRAHEPATIC BILE DUCTS: Within normal limits. No significant anatomical variant is present. EXTRAHEPATIC BILE DUCTS: The common bile duct measures 2 mm No stone or filling defect is identified. GALLBLADDER: Contains multiple stones without wall thickening, or pericholecystic fluid. LIVER: Normal size and signal intensity. No concerning liver lesion is identified on this non-contrast exam. PANCREAS: The main pancreatic duct is normal in size. There is no significant anatomical variant. Signal inte nsity is within normal limits. No mass is visualized on this non-contrast exam. No abscess. There is fluid adjacent to the pancreas. OTHER: There is some fluid in the upper abdomen including the retroperitoneum and adjacent to the pancreas CONCLUSION: 1. Multiple gallstones. 2. Normal common bile duct. No choledocholithiasis. 3. Fluid in the upper abdomen including the retroperitoneum likely from pancreatitis. Chance Ragsdale MD on November 24, 2017 at 10:26 Board Certified Radiologist. This report was verified electronically.
[2017-11-24 10:45] LABS: CHOLESTEROL/ HDL RATIO 3.38 RATIO; HDL CHOLESTEROL 42.6 MG/DL (40.0-60.0)
[2017-11-24] MEDS: ONDANSETRON HCL 4 MG/2 ML VIAL IVP PRN ×2 (10:53→21:57)
[2017-11-24] MEDS: MORPHINE SULFATE 4 MG/ML INJ IV PUSH PRN ×4 (10:54→22:00)
[2017-11-24 11:30] LABS: BILIRUBIN, URINE NEG (NEG); BLOOD, URINE NEG (NEG); GLUCOSE,URINE NEG (NEG); KETONE, URINE TRACE mg/dL (NEG); MUCUS URINE FEW /lpf (OCC); NITRITE,URINE NEG (NEG); URINE COLOR YELLOW (YELLW/STRAW); URINE LEUKOCYTE ESTERASE NEG (NEG)
--- NOTE | 2017-11-24 11:37 | PD.CAR.PN ---
CVT Progress Note Subjective/Hospital Course: Referral received Full consult to follow Patient with biliary pancreatitis currently in workup In the end will need cholecystectomy but clearly have to wait till pancreatitis calms down Thanks J Objective: Vital Signs Date Time Temp Pulse Resp B/P (MAP) Pulse Ox O2 Delivery O2 Flow Rate FiO2 11/24/17 10:30 97.1 92 18 157/93 (114) 95 11/24/17 10:15 11/24/17 09:20 97 21 11/24/17 09:05 83 18 142/83 (102) 97 Room Air 11/24/17 07:21 79 18 156/97 (116) 99 11/24/17 05:24 99.5 73 16 173/110 (131) 99 Room Air Labs: Laboratory Tests Test 11/24/17 05:35 11/24/17 10:57 White Blood Count 10.2 TH/MM3 (4.0-11.0) Red Blood Count 5.16 MIL/MM3 (4.50-5.90) Hemoglobin 15.9 GM/DL (13.0-17.0) Hematocrit 45.0 % (39.0-51.0) Mean Corpuscular Volume 87.3 FL (80.0-100.0) Mean Corpuscular Hemoglobin 30.8 PG (27.0-34.0) Mean Corpuscular Hemoglobin Concent 35.3 % (32.0-36.0) Red Cell Distribution Width 13.1 % (11.6-17.2) Platelet Count 193 TH/MM3 (150-450) Mean Platelet Volume 8.9 FL (7.0-11.0) Neutrophils (%) (Auto) 73.7 % (16.0-70.0) Lymphocytes (%) (Auto) 18.4 % (9.0-44.0) Monocytes (%) (Auto) 6.4 % (0.0-8.0) Eosinophils (%) (Auto) 1.2 % (0.0-4.0) Basophils (%) (Auto) 0.3 % (0.0-2.0) Neutrophils # (Auto) 7.6 TH/MM3 (1.8-7.7) Lymphocytes # (Auto) 1.9 TH/MM3 (1.0-4.8) Monocytes # (Auto) 0.7 TH/MM3 (0-0.9) Eosinophils # (Auto) 0.1 TH/MM3 (0-0.4) Basophils # (Auto) 0.0 TH/MM3 (0-0.2) CBC Comment DIFF FINAL Differential Comment Blood Urea Nitrogen 16 MG/DL (7-18) Creatinine 0.97 MG/DL (0.60-1.30) Random Glucose 131 MG/DL (74-106) Total Protein 7.5 GM/DL (6.4-8.2) Albumin 4.2 GM/DL (3.4-5.0) Calcium Level 9.1 MG/DL (8.5-10.1) Alkaline Phosphatase 129 U/L (45-117) Aspartate Amino Transf (AST/SGOT) 193 U/L (15-37) Alanine Aminotransferase (ALT/SGPT) 196 U/L (12-78) Total Bilirubin 2.2 MG/DL (0.2-1.0) Sodium Level 140 MEQ/L (136-145) Potassium Level 3.7 MEQ/L (3.5-5.1) Chloride Level 108 MEQ/L (98-107) Carbon Dioxide Level 22.3 MEQ/L (21.0-32.0) Anion Gap 10 MEQ/L (5-15) Estimat Glomerular Filtration Rate 98 ML/MIN (>89) Triglycerides Level 127 MG/DL (42-150) Cholesterol Level 144 MG/DL (120-200) LDL Cholesterol 76 MG/DL (0-99) HDL Cholesterol 42.6 MG/DL (40.0-60.0) Cholesterol/HDL Ratio 3.38 RATIO Lipase 10024 U/L (73-393) Urine Color YELLOW (YELLW/STRAW) Urine Turbidity CLEAR (CLEAR) Urine pH 6.0 (5.0-8.5) Urine Specific [place] 1.022 (1.002-1.035) Urine Protein TRACE mg/dL (NEG-TRACE) Urine Glucose (UA) NEG mg/dL (NEG) Urine Ketones TRACE mg/dL (NEG) Urine Occult Blood NEG (NEG) Urine Nitrite NEG (NEG) Urine Bilirubin NEG (NEG) Urine Urobilinogen LESS THAN 2.0 MG/DL (LESS Urine Leukocyte Esterase NEG (NEG) Urine RBC LESS THAN 1 /hpf (0-3) Urine WBC LESS THAN 1 /hpf (0-5) Urine Mucus FEW /lpf (OCC) Microscopic Urinalysis Comment CULT NOT INDICATED Result Diagram: 11/24/17 0535 11/24/17 0535 Byron Martins MD Nov 24, 2017 11:36
[2017-11-24 12:57] LABS: TOTAL BILIRUBIN ADULT 2.2 MG/DL (0.2-1.0); TOTAL PROTEIN 7.6 GM/DL (6.4-8.2)
--- NOTE | 2017-11-24 13:09 | HHI.HP ---
[facility] Service [facility] Primary Care Physician No Primary Care Physician Admission Diagnosis Acute pancreatitis Diagnoses: (1) Acute pancreatitis Diagnosis: Principal (2) Abdominal pain Chief Complaint: Abdominal pain Travel History International Travel<30 Days: No Contact w/Intl Traveler <30 Da: No Traveled to Known Affected Are: No History of Present Illness Patient is a 21-year-old male who presented to the emergency department with abdominal epigastric pain since 9:30 PM last night. Pain was constant and nonradiating AND very sharp. He had some nausea and then some vomiting at approximately 2 AM. Denied any fever or urinary issues. He has Been having this epigastric pain on and off but never had this bad as it was last night. Was evaluated in emergency room in about 9 months ago and Never followed up with GI as an outpatient. Has tried Protonix without any relief denies any previous abdominal surgeries. His LFTs are quite elevated his bilirubin was elevated and his lipase is VERY elevated. Was found to have pancreatitis. He was given Zofran morphine has been seen by GI and surgery We'll need his pancreatitis to calm down and then hopefully have surgery on Sunday Has already had an MRCP Review of Systems Constitutional: COMPLAINS OF: Change in appetite, DENIES: Diaphoretic episodes , Fatigue, Fever, Weight gain, Weight loss, Chills, Dizziness, Night Sweats Endocrine: DENIES: Heat/cold intolerance, Polydipsia, Polyuria, Polyphagia Eyes: DENIES: Blurred vision, Diplopia, Eye inflammation, Eye pain, Vision loss , Photosensitivity, Double Vision Ears, nose, mouth, throat: DENIES: Tinnitus, Hearing loss, Vertigo, Nasal discharge, Oral lesions, Throat pain, Hoarseness, Ear Pain, Running Nose, Odynophagia Respiratory: DENIES: Apneas, Cough, Snoring, Wheezing, Hemoptysis, Sputum production, Shortness of breath Cardiovascular: DENIES: Chest pain, Palpitations, Syncope, Dyspnea on Exertion , PND, Lower Extremity Edema Gastrointestinal: COMPLAINS OF: Abdominal pain, Nausea, Vomiting, Anorexia, DENIES: Black stools, Bloody stools, Constipation, Diarrhea Genitourinary: DENIES: Sexual dysfunction, Urinary frequency, Urinary incontinence Musculoskeletal: DENIES: Joint pain, Muscle aches, Stiffness, Joint Swelling, Back pain, Neck pain Integumentary: DENIES: Abnormal pigmentation, Nail changes, Pruritus, Rash Hematologic/lymphatic: DENIES: Bruising, Lymphadenopathy Immunologic/allergic: DENIES: Eczema Neurologic: DENIES: Abnormal gait, Headache, Localized weakness, Paresthesias, Seizures, Speech Problems, Tremor, Poor Balance Psychiatric: DENIES: Anxiety, Confusion, Mood changes, Depression, Hallucinations, Agitation, Suicidal Ideation, Homicidal Ideation, Delusions Except as stated in HPI: all other systems reviewed are Neg Past Family Social History Past Medical History None Past Surgical History Jaw surg. Reported Medications Reported Meds & Active Scripts Active Bentyl (Dicyclomine HCl) 10 Mg Cap 10 Mg PO TID PRN Carafate (Sucralfate) 1 Gm Tab 1 Gm PO QID On empty stomach Protonix (Pantoprazole Sodium) 20 Mg Tab 20 Mg PO DAILY Allergies: Coded Allergies: No Known Allergies (Unverified Allergy, Unknown, 11/24/17) Active Ordered Medications Current Medications Sodium Chloride (NS Flush) 2 ml UNSCH PRN IV FLUSH FLUSH AFTER USING IV ACCESS Last administered on 11/24/17at 07:18; Start 11/24/17 at 05:30; Stop 11/24/17 at 08: 48; Status DC Ondansetron HCl (Zofran Inj) 4 mg ONCE ONCE IVP Last administered on 11/24/17at 06:17; Start 11/24/17 at 06:00; Stop 11/24/17 at 06:01; Status DC Sodium Chloride 1,000 ml @ 1,000 mls/hr Q1H IV Last administered on 11/24/17at 06:17; Start 11/24/17 at 05:58; Stop 11/24/17 at 06:57; Status DC Al Hydrox/Mg Hydrox/Simethicone (Mag-Al Plus Susp Liq) 30 ml ONCE ONCE PO Last administered on 11/24/17at 06:17; Start 11/24/17 at 06:00; Stop 11/24/17 at 06: 01; Status DC Lidocaine HCl (Xylocaine 2% Viscous) 15 ml ONCE ONCE PO Last administered on at 06:18; Start 11/24/17 at 06:00; Stop 11/24/17 at 06:01; Status DC Morphine Sulfate (Morphine Inj) 4 mg ONCE ONCE IV PUSH Last administered on 11/24/17at 06:32; Start 11/24/17 at 06:30; Stop 11/24/17 at 06:31; Status DC Morphine Sulfate (Morphine Inj) 4 mg ONCE ONCE IV PUSH Last administered on 11/24/17at 07:18; Start 11/24/17 at 07:00; Stop 11/24/17 at 07:01; Status DC Ondansetron HCl (Zofran Inj) 4 mg ONCE ONCE IV PUSH Last administered on at 07:17; Start 11/24/17 at 07:00; Stop 11/24/17 at 07:01; Status DC Promethazine HCl (Phenergan Inj) 12.5 mg ONCE ONCE IM ; Start 11/24/17 at 07:00 ; Stop 11/24/17 at 07:09; Status DC Promethazine HCl (Phenergan Inj) 12.5 mg ONCE ONCE IM Last administered on 11/24at 07:40; Start 11/24/17 at 07:15; Stop 11/24/17 at 07:16; Status DC Morphine Sulfate (Morphine Inj) 4 mg ONCE ONCE IV PUSH Last administered on 11/24/17at 07:40; Start 11/24/17 at 07:30; Stop 11/24/17 at 07:31; Status DC Potassium Chloride/Dextrose/ Sod Cl 1,000 ml @ 125 mls/hr Q8H IV Last administered on 11/24/17at 09:01; Start 11/24/17 at 08:30 Morphine Sulfate (Morphine Inj) 4 mg ONCE ONCE IV PUSH Last administered on 11/24/17at 09:02; Start 11/24/17 at 08:45; Stop 11/24/17 at 08:46; Status DC Potassium Chloride/Dextrose/ Sod Cl 1,000 ml @ 125 mls/hr Q8H IV ; Start at 08:41; Stop 11/24/17 at 08:48; Status DC Sodium Chloride (NS Flush) 2 ml UNSCH PRN IV FLUSH FLUSH AFTER USING IV ACCESS ; Start 11/24/17 at 08:45; Stop 11/24/17 at 08:48; Status DC Sodium Chloride (NS Flush) 2 ml BID IV FLUSH ; Start 11/24/17 at 09:00; Stop 11/24 at 09:00; Status DC Acetaminophen (Tylenol) 650 mg Q4H PRN PO TEMP > 100.4; Start 11/24/17 at 08:45 Ondansetron HCl (Zofran Inj) 4 mg Q6H PRN IVP NAUSEA OR VOMITING Last administered on 11/24/17at 10:53; Start 11/24/17 at 08:45 Metoclopramide HCl (Reglan Inj) 5 mg Q6H PRN IV PUSH NAUSEA OR VOMITING; Start 11/24/17 at 08:45 Acetaminophen (Tylenol) 650 mg Q6H PRN PO PAIN SCALE 1 TO 2; Start 11/24/17 at 08:45 Oxycodone/ Acetaminophen (Percocet 5-325 Mg) 1 tab Q6H PRN PO PAIN SCALE 3 TO 5; Start 11/24/17 at 08:45 Oxycodone/ Acetaminophen (Percocet 10-325 Mg) 1 tab Q6H PRN PO PAIN SCALE 6 TO 10; Start 11/24/17 at 08:45 Morphine Sulfate (Morphine Inj) 2 mg Q3H PRN IV PUSH Pain 3-5; if unable to take PO; Start 11/24/17 at 08:45 Morphine Sulfate (Morphine Inj) 4 mg Q3H PRN IV PUSH Pain 6-10;if unable to take PO Last administered on 11/24/17at 10:54; Start 11/24/17 at 08:45 Morphine Sulfate (Morphine Inj) 4 mg Q1H PRN IV PUSH PAIN SCALE 7-10 ( INTRACTABLE); Start 11/24/17 at 08:45 Morphine Sulfate (Morphine Inj) 4 mg Q3H PRN IV PUSH BREAKTHROUGH PAIN; Start 11/24/17 at 08:45 Naloxone HCl (Narcan Inj) 0.4 mg UNSCH PRN IV PUSH SEE LABEL COMMENTS; Start at 08:45 Senna/Docusate Sodium (Sarah-Colace) 1 tab BID PO ; Start 11/24/17 at 09:00 Magnesium Hydroxide (Milk Of Magnesia Liq) 30 ml Q12H PRN PO Mild constipation ; Start 11/24/17 at 08:45 Sennosides (Senokot) 17.2 mg Q12H PRN PO Moderate constipation; Start 11/24/17 at 08:45 Bisacodyl (Dulcolax Supp) 10 mg DAILY PRN RECTAL SEVERE CONSITIPATION; Start at 08:45 Lactulose (Lactulose Liq) 30 ml DAILY PRN PO SEVERE CONSITIPATION; Start at 08:45 Sodium Chloride (NS Flush) 2 ml UNSCH PRN IV FLUSH FLUSH AFTER USING IV ACCESS Last administered on 11/24/17at 09:03; Start 11/24/17 at 08:45 Sodium Chloride (NS Flush) 2 ml BID IV FLUSH Last administered on 11/24/17at 09: 02; Start 11/24/17 at 09:00 Family History No colon cancer, mom had her gall bladder removed Social History No alcohol No smoking No illicit drug use Physical Exam Vital Signs Vital Signs Date Time Temp Pulse Resp B/P (MAP) Pulse Ox O2 Delivery O2 Flow Rate FiO2 11/24/17 12:00 97.0 83 16 139/80 (99) 96 11/24/17 10:30 97.1 92 18 157/93 (114) 95 11/24/17 10:15 11/24/17 09:20 97 21 11/24/17 09:05 83 18 142/83 (102) 97 Room Air 11/24/17 07:21 79 18 156/97 (116) 99 11/24/17 05:24 99.5 73 16 173/110 (131) 99 Room Air Physical Exam GENERAL: This is a well-nourished, well-developed patient, in no apparent distress. SKIN: No rashes, ecchymoses or lesions. Cool and dry. HEAD: Atraumatic. Normocephalic. No temporal or scalp tenderness. EYES: Pupils equal round and reactive. Extraocular motions intact. No scleral icterus. No injection or drainage. ENT: Nose without bleeding, purulent drainage or septal hematoma. Throat without erythema, tonsillar hypertrophy or exudate. Uvula midline. Airway patent. NECK: Trachea midline. No JVD or lymphadenopathy. Supple, nontender, no meningeal signs. CARDIOVASCULAR: Regular rate and rhythm without murmurs, gallops, or rubs. S1 and S2 no S3 or S4 RESPIRATORY: Clear to auscultation. Breath sounds equal bilaterally. No wheezes , rales, or rhonchi. GASTROINTESTINAL: Abdomen soft, nondistended. No hepato-splenomegaly, or palpable masses. No guarding. Some midepigastric tenderness MUSCULOSKELETAL: Extremities without clubbing, cyanosis, or edema. No joint tenderness, effusion, or edema noted. No calf tenderness. Negative Homans sign bilaterally. NEUROLOGICAL: Awake and alert. Cranial nerves II through XII intact. Motor and sensory grossly within normal limits. Five out of 5 muscle strength in all muscle groups. Normal speech. Insight and judgment is good Mood and behaviors appropriate Laboratory Laboratory Tests Test 11/24/17 05:35 11/24/17 10:57 White Blood Count 10.2 Red Blood Count 5.16 Hemoglobin 15.9 Hematocrit 45.0 Mean Corpuscular Volume 87.3 Mean Corpuscular Hemoglobin 30.8 Mean Corpuscular Hemoglobin Concent 35.3 Red Cell Distribution Width 13.1 Platelet Count 193 Mean Platelet Volume 8.9 Neutrophils (%) (Auto) 73.7 Lymphocytes (%) (Auto) 18.4 Monocytes (%) (Auto) 6.4 Eosinophils (%) (Auto) 1.2 Basophils (%) (Auto) 0.3 Neutrophils # (Auto) 7.6 Lymphocytes # (Auto) 1.9 Monocytes # (Auto) 0.7 Eosinophils # (Auto) 0.1 Basophils # (Auto) 0.0 CBC Comment DIFF FINAL Differential Comment Blood Urea Nitrogen 16 Creatinine 0.97 Random Glucose 131 Total Protein 7.5 Albumin 4.2 Calcium Level 9.1 Alkaline Phosphatase 129 Aspartate Amino Transf (AST/SGOT) 193 Alanine Aminotransferase (ALT/SGPT) 196 Total Bilirubin 2.2 Sodium Level 140 Potassium Level 3.7 Chloride Level 108 Carbon Dioxide Level 22.3 Anion Gap 10 Estimat Glomerular Filtration Rate 98 Triglycerides Level 127 Cholesterol Level 144 LDL Cholesterol 76 HDL Cholesterol 42.6 Cholesterol/HDL Ratio 3.38 Lipase 28440 Urine Color YELLOW Urine Turbidity CLEAR Urine pH 6.0 Urine Specific [place] 1.022 Urine Protein TRACE Urine Glucose (UA) NEG Urine Ketones TRACE Urine Occult Blood NEG Urine Nitrite NEG Urine Bilirubin NEG Urine Urobilinogen LESS THAN 2.0 Urine Leukocyte Esterase NEG Urine RBC LESS THAN 1 Urine WBC LESS THAN 1 Urine Mucus FEW Microscopic Urinalysis Comment CULT NOT INDICATED Result Diagram: 11/24/17 0535 11/24/17 0535 Imaging Last Impressions Gall Bladder Ultrasound 11/24/17 0644 Signed Impressions: Service Date/Time: Friday, November 24, 2017 07:45 - CONCLUSION: 1. Cholelithiasis with borderline wall thickening. 2. Common bile duct is dilated. Chance Ragsdale MD Cholangiopancreatography MRI 11/24/17 0000 Signed Impressions: Service Date/Time: Friday, November 24, 2017 09:55 - CONCLUSION: 1. Multiple gallstones. 2. Normal common bile duct. No choledocholithiasis. 3. Fluid in the upper abdomen including the retroperitoneum likely from pancreatitis. Chance Ragsdale MD Caprinmarbella VTE Risk Assessment Caprini VTE Risk Assessment: Mod/High Risk (score >= 2) Caprini Risk Assessment Model Point Value = 1 Point Value = 2 Point Value = 3 Point Value = 5 Age 41-60 Minor surgery BMI > 25 kg/m2 Swollen legs Varicose veins or History of unexplained or recurrent spontaneous Oral contraceptives or hormone replacement Sepsis (< 1 month) Serious lung disease, including pneumonia (< 1 month) Abnormal pulmonary function Acute myocardial infarction Congestive heart failure (< 1 month) History of inflammatory bowel disease Medical patient at bed rest Age 61-74 Arthroscopic surgery Major open surgery (> 45 min) Laparoscopic surgery (> 45 min) Malignancy Confined to bed (> 72 hours) Immobilizing plaster cast Central venous access Age >= 75 History of VTE Family history of VTE Factor V Leiden Prothrombin [id number] Lupus anticoagulant Anticardiolipin antibodies Elevated serum homocysteine Heparin-induced thrombocytopenia Other congenital or acquired thrombophilia Stroke (< 1 month) Elective arthroplasty Hip, pelvis, or leg fracture Acute spinal cord injury (< 1 month) Prophylaxis Regimen Total Risk Factor Score Risk Level Prophylaxis Regimen 0-1 Low Early ambulation 2 Moderate Order ONE of the following: *Sequential Compression Device (SCD) *Heparin 5000 units SQ BID 3-4 Higher Order ONE of the following medications: *Heparin 5000 units SQ TID *Enoxaparin/Lovenox 40 mg SQ daily (WT < 150 kg, CrCl > 30 mL/min) *Enoxaparin/Lovenox 30 mg SQ daily (WT < 150 kg, CrCl > 10-29 mL/min) *Enoxaparin/Lovenox 30 mg SQ BID (WT < 150 kg, CrCl > 30 mL/min) AND/OR *Sequential Compression Device (SCD) 5 or more Highest Order ONE of the following medications: *Heparin 5000 units SQ TID (Preferred with Epidurals) *Enoxaparin/Lovenox 40 mg SQ daily (WT < 150 kg, CrCl > 30 mL/min) *Enoxaparin/Lovenox 30 mg SQ daily (WT < 150 kg, CrCl > 10-29 mL/min) *Enoxaparin/Lovenox 30 mg SQ BID (WT < 150 kg, CrCl > 30 mL/min) AND *Sequential Compression Device (SCD) Assessment and Plan Assessment and Plan Abdominal pain with gallstone pancreatitis We'll continue on fluids We'll continue on pain control Keep nothing by mouth Calm down his pancreas Has already had MRCP no need for ERCP Has already been seen by gastroenterology and surgery Continue pain control and aggressive fluid rehydration Continue on morphine as needed for pain Discussed with GI and RN and patient and family and ER and surgery Code Status Full code Discussed Condition With GI surgery and RN and ER and patient and family Physician Certification 2 Midnight Certification Type: Admission for Inpatient Services Order for Inpatient Services The services are ordered in accordance with Medicare regulations or non- Medicare payer requirements, as applicable. In the case of services not specified as inpatient-only, they are appropriately provided as inpatient services in accordance with the 2-midnight benchmark. Estimated LOS (days): 3 days is the estimated time the patient will need to remain in the hospital, assuming treatment plan goals are met and no additional complications. Post-Hospital Plan: Chapin Hamilton DO Nov 24, 2017 13:09
--- NOTE | 2017-11-24 13:23 | MB ---
cc: BYRON ORNELAS MD DATE OF CONSULTATION: 11/24/2017. REASON FOR CONSULTATION: Acute cholecystitis. Acute pancreatitis. HISTORY OF PRESENT ILLNESS: This 21-year-old male presented to the hospital with severe abdominal pain in the epigastrium and right upper quadrant and radiating to the back with stabbing type attacks. The patient was worked up and found to have acute pancreatitis and cholelithiasis; hence, the consultation. PAST MEDICAL HISTORY: The patient states that he has had several attacks like this before and he was in the emergency room here before at which point he was given referral to go to GI but he never followed up with it. PAST SURGICAL HISTORY: The surgical history is negative. MEDICATIONS: Negative. ALLERGIES: NO ALLERGIES. 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 PHYSICAL EXAMINATION: GENERAL: The physical exam reveals a pleasant 21-year-old gentleman in no acute distress. HEAD, EYES, EARS, NOSE, THROAT: Normocephalic. No trauma to the head. Pupils equal and reactive. Extraocular muscles intact. NECK: The neck is supple. Bilateral carotid pulses. No bruits. CHEST: Bilateral breath sounds. HEART: Regular rhythm. The patient is hemodynamically stable. ABDOMEN: Somewhat obese, soft, active bowel sounds. On palpation, tender in the epigastrium, right upper quadrant and somewhat in the left upper quadrant. No rebound. No guarding. No masses. EXTREMITIES: Grossly within normal limits. BACK: Normal. IMPRESSION AND RECOMMENDATIONS: I reviewed laboratory and diagnostic procedures. This gentleman has acute cholecystitis and cholelithiasis and an enlarged common bile duct to about 1 cm which tells me that stones have been passing out here for a while. At this point, he has developed acute pancreatitis with a lipase of 44,000. MRCP confirms the same situation. At this point, we have to simply cool down the pancreas and then will go ahead with a laparoscopic cholecystectomy at this admission, probably Sunday or Sunday depending on how the pancreas behaves. Thank you very much for the referral. Byron PAVON/RYAN /12:20 PM /12:59 PM
[2017-11-24 13:25] LABS: ALBUMIN 4.1 GM/DL (3.4-5.0); DIRECT BILIRUBIN ADULT 0.7 MG/DL (0.0-0.2); INDIRECT BILIRUBIN 1.5 MG/DL (0.0-0.8)
[2017-11-25] VITALS (8 sets, daily range): BP systolic 100–122; BP diastolic 54–66; PULSE 97–111; RESP 17–21; TEMP 99.2–100.3; O2SAT 94–96
[2017-11-25] MEDS: D5-1/2 NS + KCL 20 MEQ INJ 1,000 ML IV SCH ×6 (02:14→23:44)
[2017-11-25] MEDS: MORPHINE SULFATE 4 MG/ML INJ IV PUSH PRN ×2 (02:15→18:10)
[2017-11-25] MEDS: ONDANSETRON HCL 4 MG/2 ML VIAL IVP PRN (05:03)
[2017-11-25 06:38] LABS: AUTOMATED NEUTROPHIL # 9.8 TH/MM3 (1.8-7.7); BASOPHIL % 0.1 % (0.0-2.0); EOSINOPHIL # 0.1 TH/MM3 (0-0.4); EOSINOPHIL % 1.2 % (0.0-4.0); HEMATOCRIT 43.5 % (39.0-51.0); HEMOGLOBIN 15.7 GM/DL (13.0-17.0); LYMPH % 11.3 % (9.0-44.0); LYMPHOCYTE # 1.4 TH/MM3 (1.0-4.8); MEAN CORPUSCULAR HEMOGLOBIN 31.4 PG (27.0-34.0); MEAN PLATELET VOLUME 9.1 FL (7.0-11.0); MONO % 5.7 % (0.0-8.0); MONOCYTE # 0.7 TH/MM3 (0-0.9); NEUT % 81.7 % (16.0-70.0); PLATELET COUNT 187 TH/MM3 (150-450); RED BLOOD COUNT 5.01 MIL/MM3 (4.50-5.90); RED CELL DISTRIBUTION WIDTH 13.1 % (11.6-17.2)
[2017-11-25 06:39] LABS: MEAN CORPUSCULAR HGB CONC 36.1 % (32.0-36.0)
[2017-11-25] MEDS: DOCUSATE SODIUM 50 MG/SENNA 8.6 MG TAB PO SCH ×2 (07:48→20:17)
[2017-11-25] MEDS: oxyCODONE/ACETAMINOPHEN 10 MG/325 MG TAB PO PRN ×3 (07:48→20:17)
[2017-11-25] MEDS: SODIUM CHLORIDE 0.9% FLUSH 10 ML FLUSH IV FLUSH SCH ×2 (07:49→20:19)
--- NOTE | 2017-11-25 09:49 | HHI.GIFU ---
Subjective Remarks Patient resting in bed, pain is much better today, was seen by GS and there's plans for cholecystectomy on Sunday (JackyRico [facility]) Objective Vitals I&O Vital Signs Date Time Temp Pulse Resp B/P (MAP) Pulse Ox O2 Delivery O2 Flow Rate FiO2 11/25/17 08:00 99.3 109 21 120/65 (83) 94 11/25/17 04:00 99.6 11/25/17 00:00 100.0 111 17 121/65 (83) 94 11/24/17 20:00 99.2 99 17 140/74 (96) 97 11/24/17 16:00 98.6 95 16 143/78 (99) 95 11/24/17 12:00 97.0 83 16 139/80 (99) 96 11/24/17 10:30 97.1 92 18 157/93 (114) 95 11/24/17 10:15 I/O 11/24/17 11/24/17 11/24/17 11/25/17 11/25/17 11/25/17 07:00 15:00 23:00 07:00 15:00 23:00 Intake Total 1000 ml 1900 ml 1000 ml 900 ml Output Total 350 ml 350 ml Balance 650 ml 1550 ml 1000 ml 900 ml Intake Oral 0 ml 0 ml IV Total 1000 ml 1900 ml 1000 ml 900 ml Output Urine Total 350 ml 350 ml # Voids 2 # Bowel Movements 0 0 Laboratory Laboratory Tests Test 11/24/17 10:57 11/25/17 04:35 Urine Color YELLOW Urine Turbidity CLEAR Urine pH 6.0 Urine Specific [place] 1.022 Urine Protein TRACE Urine Glucose (UA) NEG Urine Ketones TRACE Urine Occult Blood NEG Urine Nitrite NEG Urine Bilirubin NEG Urine Urobilinogen LESS THAN 2.0 Urine Leukocyte Esterase NEG Urine RBC LESS THAN 1 Urine WBC LESS THAN 1 Urine Mucus FEW Microscopic Urinalysis Comment CULT NOT INDICATED White Blood Count 12.0 Red Blood Count 5.01 Hemoglobin 15.7 Hematocrit 43.5 Mean Corpuscular Volume 87.0 Mean Corpuscular Hemoglobin 31.4 Mean Corpuscular Hemoglobin Concent 36.1 Red Cell Distribution Width 13.1 Platelet Count 187 Mean Platelet Volume 9.1 Neutrophils (%) (Auto) 81.7 Lymphocytes (%) (Auto) 11.3 Monocytes (%) (Auto) 5.7 Eosinophils (%) (Auto) 1.2 Basophils (%) (Auto) 0.1 Neutrophils # (Auto) 9.8 Lymphocytes # (Auto) 1.4 Monocytes # (Auto) 0.7 Eosinophils # (Auto) 0.1 Basophils # (Auto) 0.0 CBC Comment AUTO DIFF Imaging Last Impressions Gall Bladder Ultrasound 11/24/17 0644 Signed Impressions: Service Date/Time: Friday, November 24, 2017 07:45 - CONCLUSION: 1. Cholelithiasis with borderline wall thickening. 2. Common bile duct is dilated. Chance Ragsdale MD Cholangiopancreatography MRI 11/24/17 0000 Signed Impressions: Service Date/Time: Friday, November 24, 2017 09:55 - CONCLUSION: 1. Multiple gallstones. 2. Normal common bile duct. No choledocholithiasis. 3. Fluid in the upper abdomen including the retroperitoneum likely from pancreatitis. Chance Ragsdale MD Physical Exam HEENT: normocephalic; atraumatic; no jaundice. Throat is clear. CHEST: Chest is clear to auscultation and percussion. CARDIAC: Regular rate and rhythm with no murmur gallop or rubs. ABDOMEN: Soft, nondistended, epigastric tenderness; no hepatosplenomegaly; bowel sounds are present in all four quadrants. EXTREMITIES: No clubbing, cyanosis, or edema. SKIN: Normal; no rash; no jaundice. BATON TEACHER: No focal deficits; alert and oriented times three. (Rico Rico [facility]) Assessment and Plan Plan - Acute pancreatitis with severe sharp constant epigastric abdominal pain that shoots straight to the back area approx X one day. elevated AST/ALT elevated at 193/196 which is new from prior, Bilirubin elevated [place] 2.2[place] [address] on admission. US showed dilated common bile duct at 10mm. Cholelithiasis with borderline wall thickening without pericholecystic fluid. MRCP negative for any findings , labs today pending - Elevated lipase- no alcohol intake, no hx of pancreatitis, likely passing stone - Leukocytosis- secondary to above, afebrile - Gallstones- This is likely passing stone, s/p GS eval, plans for cholecystectomy on Sunday Plan: - Full liquids - s/p GS eval, plans for cholecystectomy on Sunday - Monitor labs - Supportive care - Patient seen and examined by Dr. Romeo and myself and this note is written on his behalf. (Rico Rico) Physician Comments Seen and examined with [facility], doing better clinically. Liquid diet as tolerated. Repeat cmp pending. Surgery planned for next week. (Ursula Romeo MD) Rico Rico Nov 25, 2017 09:49 Ursula Romeo MD Nov 25, 2017 10:34
--- NOTE | 2017-11-25 11:28 | HHI.PR ---
Subjective Remarks Patient is a 21-year-old male who presented to the emergency department with abdominal epigastric pain since 9:30 PM last night. Pain was constant and nonradiating AND very sharp. He had some nausea and then some vomiting at approximately 2 AM. Denied any fever or urinary issues. He has Been having this epigastric pain on and off but never had this bad as it was last night. Was evaluated in emergency room in about 9 months ago and Never followed up with GI as an outpatient. Has tried Protonix without any relief denies any previous abdominal surgeries. His LFTs are quite elevated his bilirubin was elevated and his lipase is VERY elevated. Was found to have pancreatitis. He was given Zofran morphine has been seen by GI and surgery We'll need his pancreatitis to calm down and then hopefully have surgery on Sunday Has already had an MRCP 2-4 FOR SURGERY ON PROBABLY SUNDAY FEELING BETTER DW SURGERY DW PATIENT AND RN AWAIT LABS Objective Vitals Vital Signs Date Time Temp Pulse Resp B/P (MAP) Pulse Ox O2 Delivery O2 Flow Rate FiO2 11/25/17 09:47 94 11/25/17 08:00 99.3 109 21 120/65 (83) 94 11/25/17 04:00 99.6 11/25/17 00:00 100.0 111 17 121/65 (83) 94 11/24/17 20:00 99.2 99 17 140/74 (96) 97 11/24/17 16:00 98.6 95 16 143/78 (99) 95 11/24/17 12:00 97.0 83 16 139/80 (99) 96 I/O 11/24/17 11/24/17 11/24/17 11/25/17 11/25/17 11/25/17 07:00 15:00 23:00 07:00 15:00 23:00 Intake Total 1000 ml 1900 ml 1000 ml 900 ml Output Total 350 ml 350 ml Balance 650 ml 1550 ml 1000 ml 900 ml Intake Oral 0 ml 0 ml IV Total 1000 ml 1900 ml 1000 ml 900 ml Output Urine Total 350 ml 350 ml # Voids 2 # Bowel Movements 0 0 Result Diagram: 11/25/17 0435 11/24/17 0535 Other Results Laboratory Tests Test 11/24/17 05:35 11/24/17 10:57 11/25/17 04:35 White Blood Count 10.2 TH/MM3 12.0 TH/MM3 Red Blood Count 5.16 MIL/MM3 5.01 MIL/MM3 Hemoglobin 15.9 GM/DL 15.7 GM/DL Hematocrit 45.0 % 43.5 % Mean Corpuscular Volume 87.3 FL 87.0 FL Mean Corpuscular Hemoglobin 30.8 PG 31.4 PG Mean Corpuscular Hemoglobin Concent 35.3 % 36.1 % Red Cell Distribution Width 13.1 % 13.1 % Platelet Count 193 TH/MM3 187 TH/MM3 Mean Platelet Volume 8.9 FL 9.1 FL Neutrophils (%) (Auto) 73.7 % 81.7 % Lymphocytes (%) (Auto) 18.4 % 11.3 % Monocytes (%) (Auto) 6.4 % 5.7 % Eosinophils (%) (Auto) 1.2 % 1.2 % Basophils (%) (Auto) 0.3 % 0.1 % Neutrophils # (Auto) 7.6 TH/MM3 9.8 TH/MM3 Lymphocytes # (Auto) 1.9 TH/MM3 1.4 TH/MM3 Monocytes # (Auto) 0.7 TH/MM3 0.7 TH/MM3 Eosinophils # (Auto) 0.1 TH/MM3 0.1 TH/MM3 Basophils # (Auto) 0.0 TH/MM3 0.0 TH/MM3 CBC Comment DIFF FINAL AUTO DIFF Differential Comment AUTO DIFF CONFIRMED Blood Urea Nitrogen 16 MG/DL Creatinine 0.97 MG/DL Random Glucose 131 MG/DL Total Protein 7.5 GM/DL Albumin 4.2 GM/DL Calcium Level 9.1 MG/DL Alkaline Phosphatase 129 U/L Aspartate Amino Transf (AST/SGOT) 193 U/L Alanine Aminotransferase (ALT/SGPT) 196 U/L Total Bilirubin 2.2 MG/DL Sodium Level 140 MEQ/L Potassium Level 3.7 MEQ/L Chloride Level 108 MEQ/L Carbon Dioxide Level 22.3 MEQ/L Anion Gap 10 MEQ/L Estimat Glomerular Filtration Rate 98 ML/MIN Direct Bilirubin 0.7 MG/DL Indirect Bilirubin 1.5 MG/DL Triglycerides Level 127 MG/DL Cholesterol Level 144 MG/DL LDL Cholesterol 76 MG/DL HDL Cholesterol 42.6 MG/DL Cholesterol/HDL Ratio 3.38 RATIO Lipase 94414 U/L Urine Color YELLOW Urine Turbidity CLEAR Urine pH 6.0 Urine Specific [place] 1.022 Urine Protein TRACE mg/dL Urine Glucose (UA) NEG mg/dL Urine Ketones TRACE mg/dL Urine Occult Blood NEG Urine Nitrite NEG Urine Bilirubin NEG Urine Urobilinogen LESS THAN 2.0 MG/DL Urine Leukocyte Esterase NEG Urine RBC LESS THAN 1 /hpf Urine WBC LESS THAN 1 /hpf Urine Mucus FEW /lpf Microscopic Urinalysis Comment CULT NOT INDICATED Platelet Estimate NORMAL Platelet Morphology Comment NORMAL Red Cell Morphology Comment NORMAL Imaging Last Impressions Gall Bladder Ultrasound 11/24/17 0644 Signed Impressions: Service Date/Time: Friday, November 24, 2017 07:45 - CONCLUSION: 1. Cholelithiasis with borderline wall thickening. 2. Common bile duct is dilated. Chance Ragsdale MD Cholangiopancreatography MRI 11/24/17 0000 Signed Impressions: Service Date/Time: Friday, November 24, 2017 09:55 - CONCLUSION: 1. Multiple gallstones. 2. Normal common bile duct. No choledocholithiasis. 3. Fluid in the upper abdomen including the retroperitoneum likely from pancreatitis. Chance Ragsdale MD Objective Remarks GENERAL: Awake alert oriented 3 talkative and cooperative appears improved from yesterday SKIN: Warm and dry. HEAD: Atraumatic. Normocephalic. EYES: Pupils equal and round. No scleral icterus. No injection or drainage. Extraocular muscles intact ENT: No nasal bleeding or discharge. Mucous membranes pink and moist. Tongue is midline NECK: Trachea midline. No JVD. Supple CARDIOVASCULAR: Regular rate and rhythm. S1 and S2 no S3 or S4 no thrill or rub or gallop RESPIRATORY: No accessory muscle use. Clear to auscultation. Breath sounds equal bilaterally. GASTROINTESTINAL: Abdomen soft, nondistended. Hepatic and splenic margins not palpable. Very Mild tenderness MUSCULOSKELETAL: Extremities without clubbing, cyanosis, or edema. No obvious deformities. NEUROLOGICAL: Awake and alert. No obvious cranial nerve deficits. Motor grossly within normal limits. Five out of 5 muscle strength in the arms and legs. Normal speech. PSYCHIATRIC: Appropriate mood and affect; insight and judgment normal. Medications and IVs Current Medications Sodium Chloride (NS Flush) 2 ml UNSCH PRN IV FLUSH FLUSH AFTER USING IV ACCESS Last administered on 11/24/17at 07:18; Start 11/24/17 at 05:30; Stop 11/24/17 at 08: 48; Status DC Ondansetron HCl (Zofran Inj) 4 mg ONCE ONCE IVP Last administered on 11/24/17at 06:17; Start 11/24/17 at 06:00; Stop 11/24/17 at 06:01; Status DC Sodium Chloride 1,000 ml @ 1,000 mls/hr Q1H IV Last administered on 11/24/17at 06:17; Start 11/24/17 at 05:58; Stop 11/24/17 at 06:57; Status DC Al Hydrox/Mg Hydrox/Simethicone (Mag-Al Plus Susp Liq) 30 ml ONCE ONCE PO Last administered on 11/24/17at 06:17; Start 11/24/17 at 06:00; Stop 11/24/17 at 06: 01; Status DC Lidocaine HCl (Xylocaine 2% Viscous) 15 ml ONCE ONCE PO Last administered on at 06:18; Start 11/24/17 at 06:00; Stop 11/24/17 at 06:01; Status DC Morphine Sulfate (Morphine Inj) 4 mg ONCE ONCE IV PUSH Last administered on 11/24/17at 06:32; Start 11/24/17 at 06:30; Stop 11/24/17 at 06:31; Status DC Morphine Sulfate (Morphine Inj) 4 mg ONCE ONCE IV PUSH Last administered on 11/24/17at 07:18; Start 11/24/17 at 07:00; Stop 11/24/17 at 07:01; Status DC Ondansetron HCl (Zofran Inj) 4 mg ONCE ONCE IV PUSH Last administered on at 07:17; Start 11/24/17 at 07:00; Stop 11/24/17 at 07:01; Status DC Promethazine HCl (Phenergan Inj) 12.5 mg ONCE ONCE IM ; Start 11/24/17 at 07:00 ; Stop 11/24/17 at 07:09; Status DC Promethazine HCl (Phenergan Inj) 12.5 mg ONCE ONCE IM Last administered on 11/24at 07:40; Start 11/24/17 at 07:15; Stop 11/24/17 at 07:16; Status DC Morphine Sulfate (Morphine Inj) 4 mg ONCE ONCE IV PUSH Last administered on 11/24/17at 07:40; Start 11/24/17 at 07:30; Stop 11/24/17 at 07:31; Status DC Potassium Chloride/Dextrose/ Sod Cl 1,000 ml @ 200 mls/hr Q5H IV Last administered on 11/25/17at 07:59; Start 11/24/17 at 08:30 Morphine Sulfate (Morphine Inj) 4 mg ONCE ONCE IV PUSH Last administered on 11/24/17at 09:02; Start 11/24/17 at 08:45; Stop 11/24/17 at 08:46; Status DC Potassium Chloride/Dextrose/ Sod Cl 1,000 ml @ 125 mls/hr Q8H IV ; Start at 08:41; Stop 11/24/17 at 08:48; Status DC Sodium Chloride (NS Flush) 2 ml UNSCH PRN IV FLUSH FLUSH AFTER USING IV ACCESS ; Start 11/24/17 at 08:45; Stop 11/24/17 at 08:48; Status DC Sodium Chloride (NS Flush) 2 ml BID IV FLUSH ; Start 11/24/17 at 09:00; Stop 11/24 at 09:00; Status DC Acetaminophen (Tylenol) 650 mg Q4H PRN PO TEMP > 100.4; Start 11/24/17 at 08:45 Ondansetron HCl (Zofran Inj) 4 mg Q6H PRN IVP NAUSEA OR VOMITING Last administered on 11/25/17at 05:03; Start 11/24/17 at 08:45 Metoclopramide HCl (Reglan Inj) 5 mg Q6H PRN IV PUSH NAUSEA OR VOMITING; Start 11/24/17 at 08:45 Acetaminophen (Tylenol) 650 mg Q6H PRN PO PAIN SCALE 1 TO 2; Start 11/24/17 at 08:45 Oxycodone/ Acetaminophen (Percocet 5-325 Mg) 1 tab Q6H PRN PO PAIN SCALE 3 TO 5; Start 11/24/17 at 08:45 Oxycodone/ Acetaminophen (Percocet 10-325 Mg) 1 tab Q6H PRN PO PAIN SCALE 6 TO 10 Last administered on 11/25/17at 07:48; Start 11/24/17 at 08:45 Morphine Sulfate (Morphine Inj) 2 mg Q3H PRN IV PUSH Pain 3-5; if unable to take PO; Start 11/24/17 at 08:45 Morphine Sulfate (Morphine Inj) 4 mg Q3H PRN IV PUSH Pain 6-10;if unable to take PO Last administered on 11/25/17at 02:15; Start 11/24/17 at 08:45 Morphine Sulfate (Morphine Inj) 4 mg Q1H PRN IV PUSH PAIN SCALE 7-10 ( INTRACTABLE); Start 11/24/17 at 08:45 Morphine Sulfate (Morphine Inj) 4 mg Q3H PRN IV PUSH BREAKTHROUGH PAIN; Start 11/24/17 at 08:45 Naloxone HCl (Narcan Inj) 0.4 mg UNSCH PRN IV PUSH SEE LABEL COMMENTS; Start at 08:45 Senna/Docusate Sodium (Sarah-Colace) 1 tab BID PO Last administered on 11/25/17at 07:48; Start 11/24/17 at 09:00 Magnesium Hydroxide (Milk Of Magnesia Liq) 30 ml Q12H PRN PO Mild constipation ; Start 11/24/17 at 08:45 Sennosides (Senokot) 17.2 mg Q12H PRN PO Moderate constipation; Start 11/24/17 at 08:45 Bisacodyl (Dulcolax Supp) 10 mg DAILY PRN RECTAL SEVERE CONSITIPATION; Start at 08:45 Lactulose (Lactulose Liq) 30 ml DAILY PRN PO SEVERE CONSITIPATION; Start at 08:45 Sodium Chloride (NS Flush) 2 ml UNSCH PRN IV FLUSH FLUSH AFTER USING IV ACCESS Last administered on 11/24/17at 09:03; Start 11/24/17 at 08:45 Sodium Chloride (NS Flush) 2 ml BID IV FLUSH Last administered on 11/25/17at 07: 49; Start 11/24/17 at 09:00 A/P Problem List: (1) Acute pancreatitis ICD Code: K85.90 - Acute pancreatitis without necrosis or infection, unspecified (2) Abdominal pain ICD Code: R10.9 - Unspecified abdominal pain Status: Acute Assessment and Plan Assessment and Plan Abdominal pain with gallstone pancreatitis We'll continue on fluids We'll continue on pain control Keep nothing by mouth Calm down his pancreas Has already had MRCP no need for ERCP Has already been seen by gastroenterology and surgery Continue pain control and aggressive fluid rehydration For surgery on Sunday or Sunday Await labs which are still pending Continue on morphine as needed for pain Discussed with GI and RN and patient and family and ER and surgery Code Status Full code Discussed Condition With GI surgery and RN and ER and patient and family Discharge Planning Pending surgical clearance Chapin San DO Nov 25, 2017 11:28
[2017-11-25 12:29] LABS: ALBUMIN 3.5 GM/DL (3.4-5.0); ALKALINE PHOSPHATASE 115 U/L (45-117); ALT (GPT) 109 U/L (12-78); AST (GOT) 34 U/L (15-37); BLOOD UREA NITROGEN 5 MG/DL (7-18); CALCIUM 8.7 MG/DL (8.5-10.1); CHLORIDE 102 MEQ/L (98-107); CREATININE 1.03 MG/DL (0.60-1.30); FREE T4 1.09 NG/DL (0.76-1.46); GLOMERULAR FILTRATION RATE 91 ML/MIN (>89); GLUCOSE,RANDOM 99 MG/DL (74-106); MAGNESIUM 2.1 MG/DL (1.5-2.5); PHOSPHORUS 2.8 MG/DL (2.5-4.9); SODIUM (NA) 138 MEQ/L (136-145); TOTAL PROTEIN 6.6 GM/DL (6.4-8.2)
[2017-11-25 12:31] LABS: AMYLASE 612 U/L (25-115)
--- NOTE | 2017-11-25 14:52 | PD.CAR.PN ---
CVT Progress Note Subjective/Hospital Course: Referral received Full consult to follow Patient with biliary pancreatitis currently in workup In the end will need cholecystectomy but clearly have to wait till pancreatitis calms down Thanks Vince 11/25/17 Patient with acute cholecystitis and cholelithiasis complicated by acute pancreatitis Abdomen is soft active bowel sounds no rebound or guarding Gallbladder is not palpable Like this and amylase nicely trending down. LFTs decreasing If patient progresses like this he'll be ready for laparoscopic cholecystectomy probably Sunday for I want to avoid aggravating pancreas unnecessarily Definitely patient needs to have laparoscopic cholecystectomy at this admission Objective: Vital Signs Date Time Temp Pulse Resp B/P (MAP) Pulse Ox O2 Delivery O2 Flow Rate FiO2 11/25/17 13:01 100.0 97 18 122/66 (84) 96 11/25/17 09:47 94 11/25/17 08:00 99.3 109 21 120/65 (83) 94 11/25/17 04:00 99.6 11/25/17 00:00 100.0 111 17 121/65 (83) 94 11/24/17 20:00 99.2 99 17 140/74 (96) 97 11/24/17 16:00 98.6 95 16 143/78 (99) 95 Labs: Laboratory Tests Test 11/25/17 04:35 11/25/17 11:38 White Blood Count 12.0 TH/MM3 (4.0-11.0) Red Blood Count 5.01 MIL/MM3 (4.50-5.90) Hemoglobin 15.7 GM/DL (13.0-17.0) Hematocrit 43.5 % (39.0-51.0) Mean Corpuscular Volume 87.0 FL (80.0-100.0) Mean Corpuscular Hemoglobin 31.4 PG (27.0-34.0) Mean Corpuscular Hemoglobin Concent 36.1 % (32.0-36.0) Red Cell Distribution Width 13.1 % (11.6-17.2) Platelet Count 187 TH/MM3 (150-450) Mean Platelet Volume 9.1 FL (7.0-11.0) Neutrophils (%) (Auto) 81.7 % (16.0-70.0) Lymphocytes (%) (Auto) 11.3 % (9.0-44.0) Monocytes (%) (Auto) 5.7 % (0.0-8.0) Eosinophils (%) (Auto) 1.2 % (0.0-4.0) Basophils (%) (Auto) 0.1 % (0.0-2.0) Neutrophils # (Auto) 9.8 TH/MM3 (1.8-7.7) Lymphocytes # (Auto) 1.4 TH/MM3 (1.0-4.8) Monocytes # (Auto) 0.7 TH/MM3 (0-0.9) Eosinophils # (Auto) 0.1 TH/MM3 (0-0.4) Basophils # (Auto) 0.0 TH/MM3 (0-0.2) CBC Comment AUTO DIFF Differential Comment AUTO DIFF CONFIRMED Platelet Estimate NORMAL (NORMAL) Platelet Morphology Comment NORMAL (NORMAL) Red Cell Morphology Comment NORMAL (NORMAL) Blood Urea Nitrogen 5 MG/DL (7-18) Creatinine 1.03 MG/DL (0.60-1.30) Random Glucose 99 MG/DL (74-106) Total Protein 6.6 GM/DL (6.4-8.2) Albumin 3.5 GM/DL (3.4-5.0) Calcium Level 8.7 MG/DL (8.5-10.1) Phosphorus Level 2.8 MG/DL (2.5-4.9) Magnesium Level 2.1 MG/DL (1.5-2.5) Alkaline Phosphatase 115 U/L (45-117) Aspartate Amino Transf (AST/SGOT) 34 U/L (15-37) Alanine Aminotransferase (ALT/SGPT) 109 U/L (12-78) Total Bilirubin 3.0 MG/DL (0.2-1.0) Sodium Level 138 MEQ/L (136-145) Potassium Level 4.2 MEQ/L (3.5-5.1) Chloride Level 102 MEQ/L (98-107) Carbon Dioxide Level 30.0 MEQ/L (21.0-32.0) Anion Gap 6 MEQ/L (5-15) Estimat Glomerular Filtration Rate 91 ML/MIN (>89) Amylase Level 612 U/L (25-115) Lipase 3262 U/L (73-393) Free Thyroxine 1.09 NG/DL (0.76-1.46) Thyroid Stimulating Hormone 3rd Gen 0.659 uIU/ML (0.358-3.740) Result Diagram: 11/25/17 0435 11/25/17 1138 Byron Martins MD Nov 25, 2017 14:52
[2017-11-26] VITALS: BP 114/62; PULSE 108; RESP 18; TEMP 100.1; O2SAT 92
[2017-11-26] MEDS: ONDANSETRON HCL 4 MG/2 ML VIAL IVP PRN (04:32)
[2017-11-26] MEDS: oxyCODONE/ACETAMINOPHEN 10 MG/325 MG TAB PO PRN ×4 (04:32→22:34)
[2017-11-26 04:41] LABS: AUTOMATED NEUTROPHIL # 9.1 TH/MM3 (1.8-7.7); BASOPHIL % 0.3 % (0.0-2.0); EOSINOPHIL # 0.3 TH/MM3 (0-0.4); EOSINOPHIL % 2.1 % (0.0-4.0); HEMATOCRIT 39.2 % (39.0-51.0); HEMOGLOBIN 14.1 GM/DL (13.0-17.0); LYMPH % 12.5 % (9.0-44.0); LYMPHOCYTE # 1.5 TH/MM3 (1.0-4.8); MEAN CORPUSCULAR HEMOGLOBIN 31.3 PG (27.0-34.0); MEAN PLATELET VOLUME 8.6 FL (7.0-11.0); MONO % 7.2 % (0.0-8.0); MONOCYTE # 0.8 TH/MM3 (0-0.9); NEUT % 77.9 % (16.0-70.0); PLATELET COUNT 172 TH/MM3 (150-450); RED BLOOD COUNT 4.51 MIL/MM3 (4.50-5.90); RED CELL DISTRIBUTION WIDTH 12.9 % (11.6-17.2); WHITE BLOOD COUNT 11.7 TH/MM3 (4.0-11.0)
[2017-11-26 05:02] LABS: ALBUMIN 3.2 GM/DL (3.4-5.0); DIRECT BILIRUBIN ADULT 0.4 MG/DL (0.0-0.2); INDIRECT BILIRUBIN 2.3 MG/DL (0.0-0.8); MAGNESIUM 1.8 MG/DL (1.5-2.5); PHOSPHORUS 1.6 MG/DL (2.5-4.9); TOTAL BILIRUBIN ADULT 2.7 MG/DL (0.2-1.0); TOTAL PROTEIN 6.4 GM/DL (6.4-8.2)
[2017-11-26] MEDS: D5-1/2 NS + KCL 20 MEQ INJ 1,000 ML IV SCH ×3 (05:19→22:35)
[2017-11-26 08:00] VITALS: BP 107/61; PULSE 89; RESP 20; TEMP 98.8; O2SAT 95
[2017-11-26] MEDS: SODIUM CHLORIDE 0.9% FLUSH 10 ML FLUSH IV FLUSH SCH ×2 (08:06→21:00)
[2017-11-26] MEDS: DOCUSATE SODIUM 50 MG/SENNA 8.6 MG TAB PO SCH ×2 (08:06→22:33)
[2017-11-26 09:00] VITALS: O2SAT 92
--- NOTE | 2017-11-26 10:21 | PD.CAR.PN ---
CVT Progress Note Subjective/Hospital Course: Referral received Full consult to follow Patient with biliary pancreatitis currently in workup In the end will need cholecystectomy but clearly have to wait till pancreatitis calms down Thanks J 11/25/17 Patient with acute cholecystitis and cholelithiasis complicated by acute pancreatitis Abdomen is soft active bowel sounds no rebound or guarding Gallbladder is not palpable Like this and amylase nicely trending down. LFTs decreasing If patient progresses like this he'll be ready for laparoscopic cholecystectomy probably Sunday for I want to avoid aggravating pancreas unnecessarily Definitely patient needs to have laparoscopic cholecystectomy at this admission 11/26/17 Patient doing well abdomen soft active bowel sounds Direct bilirubin low indirect bilirubin slightly elevated Amylase and lipase normalizing Patient for laparoscopic cholecystectomy tomorrow It should be noted that the patient's with develop biliary problems and gallstones at this early age should preferably worked up for hereditary hyperbilirubinemia type hemolytic conditions either dose caused by erythrocyte structural abnormalities like thalassemia, spherocytosis, elliptocytosis, G6PD deficiency etc. or liver enzymatic disorders like Bella [place] syndrome, Gilbert's disease etc. Is will not make any difference at this point and patient needs cholecystectomy however in the future if he develops hyperbilirubinemia at least we would have an idea as to an underlying cause Objective: Vital Signs Date Time Temp Pulse Resp B/P (MAP) Pulse Ox O2 Delivery O2 Flow Rate FiO2 11/26/17 09:00 92 11/26/17 08:00 98.8 89 20 107/61 (76) 95 11/26/17 00:00 100.1 108 18 114/62 (79) 92 11/25/17 20:00 99.2 101 18 100/54 (69) 96 11/25/17 18:16 100.3 11/25/17 18:15 18 11/25/17 16:00 99.2 101 18 117/64 (81) 96 11/25/17 13:01 100.0 97 18 122/66 (84) 96 Labs: Laboratory Tests Test 11/26/17 03:44 White Blood Count 11.7 TH/MM3 (4.0-11.0) Red Blood Count 4.51 MIL/MM3 (4.50-5.90) Hemoglobin 14.1 GM/DL (13.0-17.0) Hematocrit 39.2 % (39.0-51.0) Mean Corpuscular Volume 87.0 FL (80.0-100.0) Mean Corpuscular Hemoglobin 31.3 PG (27.0-34.0) Mean Corpuscular Hemoglobin Concent 36.0 % (32.0-36.0) Red Cell Distribution Width 12.9 % (11.6-17.2) Platelet Count 172 TH/MM3 (150-450) Mean Platelet Volume 8.6 FL (7.0-11.0) Neutrophils (%) (Auto) 77.9 % (16.0-70.0) Lymphocytes (%) (Auto) 12.5 % (9.0-44.0) Monocytes (%) (Auto) 7.2 % (0.0-8.0) Eosinophils (%) (Auto) 2.1 % (0.0-4.0) Basophils (%) (Auto) 0.3 % (0.0-2.0) Neutrophils # (Auto) 9.1 TH/MM3 (1.8-7.7) Lymphocytes # (Auto) 1.5 TH/MM3 (1.0-4.8) Monocytes # (Auto) 0.8 TH/MM3 (0-0.9) Eosinophils # (Auto) 0.3 TH/MM3 (0-0.4) Basophils # (Auto) 0.0 TH/MM3 (0-0.2) CBC Comment AUTO DIFF Differential Comment AUTO DIFF CONFIRMED Phosphorus Level 1.6 MG/DL (2.5-4.9) Magnesium Level 1.8 MG/DL (1.5-2.5) Total Bilirubin 2.7 MG/DL (0.2-1.0) Direct Bilirubin 0.4 MG/DL (0.0-0.2) Indirect Bilirubin 2.3 MG/DL (0.0-0.8) Aspartate Amino Transf (AST/SGOT) 22 U/L (15-37) Alanine Aminotransferase (ALT/SGPT) 79 U/L (12-78) Alkaline Phosphatase 101 U/L (45-117) Total Protein 6.4 GM/DL (6.4-8.2) Albumin 3.2 GM/DL (3.4-5.0) Amylase Level 333 U/L (25-115) Lipase 1153 U/L (73-393) Result Diagram: 11/26/17 0344 11/25/17 1138 Byron Martins MD Nov 26, 2017 10:21
--- NOTE | 2017-11-26 10:29 | HHI.PR ---
Subjective Remarks in no acute distress. still with mild epigastric pain. had some nausea earlier but no emesis. low-grade fever last night. Objective Vitals Vital Signs Date Time Temp Pulse Resp B/P (MAP) Pulse Ox O2 Delivery O2 Flow Rate FiO2 11/26/17 09:00 92 11/26/17 08:00 98.8 89 20 107/61 (76) 95 11/26/17 00:00 100.1 108 18 114/62 (79) 92 11/25/17 20:00 99.2 101 18 100/54 (69) 96 11/25/17 18:16 100.3 11/25/17 18:15 18 11/25/17 16:00 99.2 101 18 117/64 (81) 96 11/25/17 13:01 100.0 97 18 122/66 (84) 96 I/O 11/25/17 11/25/17 11/25/17 11/26/17 11/26/17 11/26/17 07:00 15:00 23:00 07:00 15:00 23:00 Intake Total 1000 ml 1900 ml 1800 ml 2480 ml Balance 1000 ml 1900 ml 1800 ml 2480 ml Intake Oral 0 ml 800 ml 480 ml IV Total 1000 ml 1900 ml 1000 ml 2000 ml # Voids 2 5 3 # Bowel Movements 0 0 0 Result Diagram: 11/26/17 0344 11/25/17 1138 Imaging Last Impressions Gall Bladder Ultrasound 11/24/17 0644 Signed Impressions: Service Date/Time: Friday, November 24, 2017 07:45 - CONCLUSION: 1. Cholelithiasis with borderline wall thickening. 2. Common bile duct is dilated. Chance Ragsdale MD Cholangiopancreatography MRI 11/24/17 0000 Signed Impressions: Service Date/Time: Friday, November 24, 2017 09:55 - CONCLUSION: 1. Multiple gallstones. 2. Normal common bile duct. No choledocholithiasis. 3. Fluid in the upper abdomen including the retroperitoneum likely from pancreatitis. Chance Ragsdale MD Objective Remarks GENERAL: This is a well-nourished, well-developed patient, in no apparent distress. CARDIOVASCULAR: Regular rate and regular rhythm without murmurs, gallops, or rubs. RESPIRATORY: Clear to auscultation. Breath sounds equal bilaterally. No wheezes , rales, or rhonchi. GASTROINTESTINAL: Abdomen soft, mild epigastric tenderness, nondistended. Normal, active bowel sounds MUSCULOSKELETAL: Extremities without clubbing, cyanosis, or edema. NEURO: Alert & Oriented x4 to person, place, time, situation. Moves all ext x4 Medications and IVs Inpatient Medications Acetaminophen (Tylenol) 650 mg Q6H PRN PO PAIN SCALE 1 TO 2; Start 11/24/17 at 08:45 Al Hydrox/Mg Hydrox/Simethicone (Mag-Al Plus Susp Liq) 30 ml ONCE ONCE PO Last administered on 11/24/17at 06:17; Start 11/24/17 at 06:00; Stop 11/24/17 at 06: 01; Status DC Bisacodyl (Dulcolax Supp) 10 mg DAILY PRN RECTAL SEVERE CONSITIPATION; Start at 08:45 Lactulose (Lactulose Liq) 30 ml DAILY PRN PO SEVERE CONSITIPATION; Start at 08:45 Lidocaine HCl (Xylocaine 2% Viscous) 15 ml ONCE ONCE PO Last administered on at 06:18; Start 11/24/17 at 06:00; Stop 11/24/17 at 06:01; Status DC Magnesium Hydroxide (Milk Of Magnesia Liq) 30 ml Q12H PRN PO Mild constipation ; Start 11/24/17 at 08:45 Metoclopramide HCl (Reglan Inj) 5 mg Q6H PRN IV PUSH NAUSEA OR VOMITING; Start 11/24/17 at 08:45 Morphine Sulfate (Morphine Inj) 4 mg Q3H PRN IV PUSH BREAKTHROUGH PAIN; Start 11/24/17 at 08:45 Naloxone HCl (Narcan Inj) 0.4 mg UNSCH PRN IV PUSH SEE LABEL COMMENTS; Start at 08:45 Ondansetron HCl (Zofran Inj) 4 mg Q6H PRN IVP NAUSEA OR VOMITING Last administered on 11/26/17at 04:32; Start 11/24/17 at 08:45 Oxycodone/ Acetaminophen (Percocet 5-325 Mg) 1 tab Q6H PRN PO PAIN SCALE 3 TO 5; Start 11/24/17 at 08:45 Oxycodone/ Acetaminophen (Percocet 10-325 Mg) 1 tab Q6H PRN PO PAIN SCALE 6 TO 10 Last administered on 11/26/17at 04:32; Start 11/24/17 at 08:45 Potassium Chloride/Dextrose/ Sod Cl 1,000 ml @ 125 mls/hr Q8H IV ; Start at 08:41; Stop 11/24/17 at 08:48; Status DC Promethazine HCl (Phenergan Inj) 12.5 mg ONCE ONCE IM Last administered on 11/24at 07:40; Start 11/24/17 at 07:15; Stop 11/24/17 at 07:16; Status DC Senna/Docusate Sodium (Sarah-Colace) 1 tab BID PO Last administered on 11/26/17at 08:06; Start 11/24/17 at 09:00 Sennosides (Senokot) 17.2 mg Q12H PRN PO Moderate constipation; Start 11/24/17 at 08:45 Sodium Chloride (NS Flush) 2 ml BID IV FLUSH Last administered on 11/25/17at 20: 19; Start 11/24/17 at 09:00 A/P Problem List: (1) Acute pancreatitis ICD Code: K85.90 - Acute pancreatitis without necrosis or infection, unspecified (2) Abdominal pain ICD Code: R10.9 - Unspecified abdominal pain Status: Acute Assessment and Plan Assessment and Plan Abdominal pain with gallstone pancreatitis We'll continue on fluids We'll continue on pain control Keep nothing by mouth after midnight Has already had MRCP no need for ERCP Has already been seen by gastroenterology and surgery Continue pain control and aggressive fluid rehydration For surgery on Sunday Discharge Planning when cleared by surgery. Elpidio Mendez MD Nov 26, 2017 10:29
[2017-11-26 12:00] VITALS: BP 115/67; PULSE 98; RESP 18; TEMP 99.5; O2SAT 92
[2017-11-26] MEDS ORDERED: POTASSIUM PHOSPHATE INJ 15 MMOL in SODIUM CHLORIDE 0.9% INJ 150 ML IV ONE (12:00)
--- NOTE | 2017-11-26 12:12 | HHI.GIFU ---
Subjective Remarks Pt resting in bed, watching laptop. Still with abd pain but controlled with meds. Tolerating clears. Going for lapchole tomorrow. (Neena Burton) Objective Vitals I&O Vital Signs Date Time Temp Pulse Resp B/P (MAP) Pulse Ox O2 Delivery O2 Flow Rate FiO2 11/26/17 09:00 92 11/26/17 08:00 98.8 89 20 107/61 (76) 95 11/26/17 00:00 100.1 108 18 114/62 (79) 92 11/25/17 20:00 99.2 101 18 100/54 (69) 96 11/25/17 18:16 100.3 11/25/17 18:15 18 11/25/17 16:00 99.2 101 18 117/64 (81) 96 11/25/17 13:01 100.0 97 18 122/66 (84) 96 I/O 11/25/17 11/25/17 11/25/17 11/26/17 11/26/17 11/26/17 07:00 15:00 23:00 07:00 15:00 23:00 Intake Total 1000 ml 1900 ml 1800 ml 2480 ml Balance 1000 ml 1900 ml 1800 ml 2480 ml Intake Oral 0 ml 800 ml 480 ml IV Total 1000 ml 1900 ml 1000 ml 2000 ml # Voids 2 5 3 # Bowel Movements 0 0 0 Laboratory Laboratory Tests Test 11/26/17 03:44 White Blood Count 11.7 Red Blood Count 4.51 Hemoglobin 14.1 Hematocrit 39.2 Mean Corpuscular Volume 87.0 Mean Corpuscular Hemoglobin 31.3 Mean Corpuscular Hemoglobin Concent 36.0 Red Cell Distribution Width 12.9 Platelet Count 172 Mean Platelet Volume 8.6 Neutrophils (%) (Auto) 77.9 Lymphocytes (%) (Auto) 12.5 Monocytes (%) (Auto) 7.2 Eosinophils (%) (Auto) 2.1 Basophils (%) (Auto) 0.3 Neutrophils # (Auto) 9.1 Lymphocytes # (Auto) 1.5 Monocytes # (Auto) 0.8 Eosinophils # (Auto) 0.3 Basophils # (Auto) 0.0 CBC Comment AUTO DIFF Differential Comment AUTO DIFF CONFIRMED Phosphorus Level 1.6 Magnesium Level 1.8 Total Bilirubin 2.7 Direct Bilirubin 0.4 Indirect Bilirubin 2.3 Aspartate Amino Transf (AST/SGOT) 22 Alanine Aminotransferase (ALT/SGPT) 79 Alkaline Phosphatase 101 Total Protein 6.4 Albumin 3.2 Amylase Level 333 Lipase 1153 Imaging Last Impressions Gall Bladder Ultrasound 11/24/17 0644 Signed Impressions: Service Date/Time: Friday, November 24, 2017 07:45 - CONCLUSION: 1. Cholelithiasis with borderline wall thickening. 2. Common bile duct is dilated. Chance Ragsdale MD Cholangiopancreatography MRI 11/24/17 0000 Signed Impressions: Service Date/Time: Friday, November 24, 2017 09:55 - CONCLUSION: 1. Multiple gallstones. 2. Normal common bile duct. No choledocholithiasis. 3. Fluid in the upper abdomen including the retroperitoneum likely from pancreatitis. Chance Ragsdale MD Physical Exam HEENT: normocephalic; atraumatic; no jaundice. CHEST: CTA CARDIAC: RRR ABDOMEN: Soft, nondistended, epigastric tenderness; no hepatosplenomegaly; bowel sounds are present in all four quadrants. EXTREMITIES: No clubbing, cyanosis, or edema. SKIN: Normal; no rash; no jaundice. 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 (Neena Burton [facility]) Assessment and Plan Plan - Acute pancreatitis with severe sharp constant epigastric abdominal pain that shoots straight to the back area approx X one day. elevated AST/ALT elevated at 193/196 which is new from prior, Bilirubin elevated at 2.2[place] [address] on admission. US showed dilated common bile duct at 10mm. Cholelithiasis with borderline wall thickening without pericholecystic fluid. MRCP negative for any findings , labs today pending - Elevated lipase- no alcohol intake, no hx of pancreatitis, likely passing stone - Leukocytosis- secondary to above, afebrile - Gallstones- This is likely passing stone, s/p GS eval, plans for cholecystectomy on Sunday11/26/17 - pain present but controlled. tolerating clears. lipase trending down. LFTs trending down. lapchole tomorrow. Plan: - clears - await cholecystectomy on Sunday - Monitor labs - Supportive care - Patient seen and examined by Dr. Lemus and myself and this note is written on her behalf. (Neena Burton) Physician Comments seen, examined agree with above cholecystectomy with intraop cholangiogram if possible to r/o cbd stones-at this time no indication of that (Agustina Lemus MD) Neena Burton Nov 26, 2017 12:12 Agustina Lemus MD Nov 26, 2017 15:00
[2017-11-26] MEDS: MORPHINE SULFATE 2 MG/ML INJ IV PUSH PRN (15:23)
[2017-11-26 16:00] VITALS: BP 122/55; PULSE 99; RESP 16; TEMP 100.1; O2SAT 94
[2017-11-26 20:00] VITALS: BP 125/72; PULSE 94; RESP 20; TEMP 99; O2SAT 95
[2017-11-26] MEDS ORDERED: LACTATED RINGER'S 1000 ML IV PRN (22:00)
[2017-11-26] MEDS ORDERED: POVIDONE IODINE 5% (ANTISEPSIS KIT) 4 APPLICATIONS EACH NARE PRN (22:00)
[2017-11-26] MEDS ORDERED: CHLORHEXIDINE GLUCONATE 2 % 1 PACK (2 CLOTHS) TOPICAL PRN (22:00)
[2017-11-27] MEDS: oxyCODONE/ACETAMINOPHEN 10 MG/325 MG TAB PO PRN ×2 (04:29→19:51)
[2017-11-27] MEDS: ONDANSETRON HCL 4 MG/2 ML VIAL IVP PRN (04:29)
[2017-11-27] MEDS: D5-1/2 NS + KCL 20 MEQ INJ 1,000 ML IV SCH ×2 (05:56→19:51)
[2017-11-27 06:05] LABS: ALBUMIN 3.1 GM/DL (3.4-5.0); AST (GOT) 10 U/L (15-37); BICARBONATE 27.7 MEQ/L (21.0-32.0); BLOOD UREA NITROGEN 6 MG/DL (7-18); CALCIUM 8.7 MG/DL (8.5-10.1); CHLORIDE 101 MEQ/L (98-107); GLOMERULAR FILTRATION RATE 107 ML/MIN (>89); GLUCOSE,RANDOM 101 MG/DL (74-106); SODIUM (NA) 135 MEQ/L (136-145)
[2017-11-27 06:06] LABS: ALT (GPT) 51 U/L (12-78); PHOSPHORUS 2.6 MG/DL (2.5-4.9)
[2017-11-27 06:08] LABS: ALKALINE PHOSPHATASE 98 U/L (45-117); TOTAL BILIRUBIN ADULT 2.4 MG/DL (0.2-1.0); TOTAL PROTEIN 6.7 GM/DL (6.4-8.2)
[2017-11-27 08:00] VITALS: BP 117/64; PULSE 98; RESP 18; TEMP 99.6; O2SAT 94
--- NOTE | 2017-11-27 08:28 | HHI.PR ---
Subjective Remarks in no acute distress. has some abdominal pain which is fairly controlled with the pain medications. had some nausea but no emesis. on and off low grade fever. Objective Vitals Vital Signs Date Time Temp Pulse Resp B/P (MAP) Pulse Ox O2 Delivery O2 Flow Rate FiO2 11/26/17 20:00 99.0 94 20 125/72 (89) 95 11/26/17 16:00 100.1 99 16 122/55 (77) 94 11/26/17 12:00 99.5 98 18 115/67 (83) 92 11/26/17 09:00 92 I/O 11/26/17 11/26/17 11/26/17 11/27/17 11/27/17 11/27/17 07:00 15:00 23:00 07:00 15:00 23:00 Intake Total 2480 ml 2045 ml 1000 ml Balance 2480 ml 2045 ml 1000 ml Intake Oral 480 ml 740 ml IV Total 2000 ml 1305 ml 1000 ml # Voids 3 3 # Bowel Movements 0 0 Result Diagram: 11/26/17 0344 11/27/17 0427 Imaging Last Impressions Gall Bladder Ultrasound 11/24/17 0644 Signed Impressions: Service Date/Time: Friday, November 24, 2017 07:45 - CONCLUSION: 1. Cholelithiasis with borderline wall thickening. 2. Common bile duct is dilated. Chance Ragsdale MD Cholangiopancreatography MRI 11/24/17 0000 Signed Impressions: Service Date/Time: Friday, November 24, 2017 09:55 - CONCLUSION: 1. Multiple gallstones. 2. Normal common bile duct. No choledocholithiasis. 3. Fluid in the upper abdomen including the retroperitoneum likely from pancreatitis. Chance Ragsdale MD Objective Remarks GENERAL: This is a well-nourished, well-developed patient, in no apparent distress. CARDIOVASCULAR: Regular rate and regular rhythm without murmurs, gallops, or rubs. RESPIRATORY: Clear to auscultation. Breath sounds equal bilaterally. No wheezes , rales, or rhonchi. GASTROINTESTINAL: Abdomen soft, mild epigastric tenderness, nondistended. Normal, active bowel sounds MUSCULOSKELETAL: Extremities without clubbing, cyanosis, or edema. NEURO: Alert & Oriented x4 to person, place, time, situation. Moves all ext x4 Medications and IVs Inpatient Medications Acetaminophen (Tylenol) 650 mg Q6H PRN PO PAIN SCALE 1 TO 2; Start 11/24/17 at 08:45 Al Hydrox/Mg Hydrox/Simethicone (Mag-Al Plus Susp Liq) 30 ml ONCE ONCE PO Last administered on 11/24/17at 06:17; Start 11/24/17 at 06:00; Stop 11/24/17 at 06: 01; Status DC Bisacodyl (Dulcolax Supp) 10 mg DAILY PRN RECTAL SEVERE CONSITIPATION; Start at 08:45 Chlorhexidine Gluconate (Chlorhexidine 2% Cloth) 3 pack LITIGATION ASSISTANT PRN TOPICAL SEE LABEL COMMENTS; Start 11/26/17 at 22:00; Stop 11/29/17 at 21:59 Lactated Ringer's 1,000 ml @ 30 mls/hr Q24H PRN IV SEE LABEL COMMENTS; Start at 22:00; Stop 11/29/17 at 21:59 Lactulose (Lactulose Liq) 30 ml DAILY PRN PO SEVERE CONSITIPATION; Start at 08:45 Lidocaine HCl (Xylocaine 2% Viscous) 15 ml ONCE ONCE PO Last administered on at 06:18; Start 11/24/17 at 06:00; Stop 11/24/17 at 06:01; Status DC Magnesium Hydroxide (Milk Of Magnesia Liq) 30 ml Q12H PRN PO Mild constipation ; Start 11/24/17 at 08:45 Metoclopramide HCl (Reglan Inj) 5 mg Q6H PRN IV PUSH NAUSEA OR VOMITING; Start 11/24/17 at 08:45 Morphine Sulfate (Morphine Inj) 4 mg Q3H PRN IV PUSH BREAKTHROUGH PAIN Last administered on 11/26/17at 21:22; Start 11/24/17 at 08:45 Naloxone HCl (Narcan Inj) 0.4 mg UNSCH PRN IV PUSH SEE LABEL COMMENTS; Start at 08:45 Ondansetron HCl (Zofran Inj) 4 mg Q6H PRN IVP NAUSEA OR VOMITING Last administered on 11/27/17at 04:29; Start 11/24/17 at 08:45 Oxycodone/ Acetaminophen (Percocet 5-325 Mg) 1 tab Q6H PRN PO PAIN SCALE 3 TO 5; Start 11/24/17 at 08:45 Oxycodone/ Acetaminophen (Percocet 10-325 Mg) 1 tab Q6H PRN PO PAIN SCALE 6 TO 10 Last administered on 11/27/17at 04:29; Start 11/24/17 at 08:45 Potassium Chloride/Dextrose/ Sod Cl 1,000 ml @ 125 mls/hr Q8H IV ; Start at 08:41; Stop 11/24/17 at 08:48; Status DC Potassium Phosphate 15 mmol/ Sodium Chloride 155 ml @ 38.75 mls/ hr ONCE ONCE IV Last administered on 11/26/17at 12:25; Start 11/26/17 at 12:00; Stop 11/26/17 at 15:59; Status DC Povidone Iodine (Betadine 5% Antisepsis Kit) 1 applic LITIGATION ASSISTANT PRN EACH NARE SEE LABEL COMMENTS; Start 11/26/17 at 22:00; Stop 11/29/17 at 21:59 Promethazine HCl (Phenergan Inj) 12.5 mg ONCE ONCE IM Last administered on 11/24at 07:40; Start 11/24/17 at 07:15; Stop 11/24/17 at 07:16; Status DC Senna/Docusate Sodium (Sarah-Colace) 1 tab BID PO Last administered on 11/26/17at 22:33; Start 11/24/17 at 09:00 Sennosides (Senokot) 17.2 mg Q12H PRN PO Moderate constipation; Start 11/24/17 at 08:45 Sodium Chloride (NS Flush) 2 ml BID IV FLUSH Last administered on 11/25/17at 20: 19; Start 11/24/17 at 09:00 A/P Problem List: (1) Acute pancreatitis ICD Code: K85.90 - Acute pancreatitis without necrosis or infection, unspecified (2) Abdominal pain ICD Code: R10.9 - Unspecified abdominal pain Status: Acute Assessment and Plan Assessment and Plan gallstone pancreatitis We'll continue on fluids We'll continue on pain control GI and surgery f/u appreciated; plan for cholecystectomy today. Discharge Planning for cholecystectomy today; dc when cleared by surgery. Elpidio Mendez MD Nov 27, 2017 08:28
[2017-11-27] MEDS ORDERED: OXYC1TAB63 PO (08:29)
[2017-11-27] MEDS ORDERED: BUPIVACAINE/EPINEPHRINE 0.5% PF 30 ML VIAL ONE (08:40)
[2017-11-27 08:51] VITALS: O2SAT 94
[2017-11-27] MEDS: SODIUM CHLORIDE 0.9% FLUSH 10 ML FLUSH IV FLUSH SCH ×2 (09:00→19:52)
[2017-11-27] MEDS: DOCUSATE SODIUM 50 MG/SENNA 8.6 MG TAB PO SCH ×2 (09:00→19:51)
[2017-11-27] MEDS ORDERED: ROCURONIUM INJ 50 MG/5 ML SYRINGE IV PUSH ONE (12:00)
[2017-11-27] MEDS ORDERED: PROPOFOL 200 MG/20 ML AMP IV ONE (12:00)
[2017-11-27] MEDS ORDERED: LACTATED RINGER'S 1000 ML INJ 2,000 ML IV ONE (12:00)
[2017-11-27] MEDS ORDERED: SUCCINYLCHOLINE CHLORIDE 200 MG/10 ML VIAL IV ONE (12:00)
[2017-11-27] MEDS ORDERED: ceFAZolin INJ 1,000 MG VIAL IV ONE ×2 (12:00→14:30)
[2017-11-27] MEDS ORDERED: ONDANSETRON HCL 4 MG/2 ML VIAL IV ONE (12:00)
[2017-11-27] MEDS ORDERED: LIDOCAINE HCL 1% PF 5 ML SYRINGE OTHER ONE (12:00)
[2017-11-27] MEDS ORDERED: DEXAMETHASONE SOD PHOS 4 MG/ML VIAL IV ONE (12:00)
[2017-11-27] MEDS ORDERED: APREPITANT 40 MG CAP ONE (12:28)
[2017-11-27] MEDS ORDERED: ACETAMINOPHEN 1000 MG/100 ML 100 ML IV ONE ×2 (12:28→13:02)
[2017-11-27] MEDS ORDERED: ACETAMINOPHEN 1000 MG/100 ML 100 ML IV SCH (13:00)
[2017-11-27] MEDS ORDERED: APREPITANT 40 MG CAP PO SCH (13:00)
[2017-11-27] MEDS ORDERED: HYDROmorphone HCL PF 2 MG/ML VIAL ONE (13:02)
[2017-11-27] MEDS ORDERED: metroNIDAZOLE 500 MG INJ 100 ML IV ONE (13:40)
[2017-11-27] MEDS ORDERED: SUGAMMADEX SODIUM 200 MG/2 ML VIAL IV PUSH ONE (15:02)
[2017-11-27] MEDS ORDERED: DO NOT ADM ANY ANTICOAGULANT DRUGS PRN (15:30)
--- NOTE | 2017-11-27 15:32 | HHI.GIFU ---
Subjective Remarks s/p SIMIN resting the bed drowsy, but responds to verbal stimuli. Abd. taut, mild tympany (Bekah Lund) Objective Vitals I&O Vital Signs Date Time Temp Pulse Resp B/P (MAP) Pulse Ox O2 Delivery O2 Flow Rate FiO2 11/27/17 12:51 99.3 11/27/17 12:15 101.0 11/27/17 08:51 94 11/27/17 08:00 99.6 98 18 117/64 (81) 94 11/26/17 20:00 99.0 94 20 125/72 (89) 95 11/26/17 16:00 100.1 99 16 122/55 (77) 94 I/O 11/26/17 11/26/17 11/26/17 11/27/17 11/27/17 11/27/17 07:00 15:00 23:00 07:00 15:00 23:00 Intake Total 2480 ml 2045 ml 1000 ml Balance 2480 ml 2045 ml 1000 ml Intake Oral 480 ml 740 ml IV Total 2000 ml 1305 ml 1000 ml # Voids 3 3 # Bowel Movements 0 0 Laboratory Laboratory Tests Test 11/27/17 04:27 Blood Urea Nitrogen 6 Creatinine 0.90 Random Glucose 101 Total Protein 6.7 Albumin 3.1 Calcium Level 8.7 Phosphorus Level 2.6 Alkaline Phosphatase 98 Aspartate Amino Transf (AST/SGOT) 10 Alanine Aminotransferase (ALT/SGPT) 51 Total Bilirubin 2.4 Sodium Level 135 Potassium Level 3.9 Chloride Level 101 Carbon Dioxide Level 27.7 Anion Gap 6 Estimat Glomerular Filtration Rate 107 Lipase 520 Imaging Last Impressions Gall Bladder Ultrasound 11/24/17 0644 Signed Impressions: Service Date/Time: Friday, November 24, 2017 07:45 - CONCLUSION: 1. Cholelithiasis with borderline wall thickening. 2. Common bile duct is dilated. Chance Ragsdale MD Cholangiopancreatography MRI 11/24/17 0000 Signed Impressions: Service Date/Time: Friday, November 24, 2017 09:55 - CONCLUSION: 1. Multiple gallstones. 2. Normal common bile duct. No choledocholithiasis. 3. Fluid in the upper abdomen including the retroperitoneum likely from pancreatitis. Chance Ragsdale MD Physical Exam HEENT: normocephalic; atraumatic; no jaundice. CHEST: CTA CARDIAC: RRR, no rhonchi ABDOMEN: Soft, mild distention post op; no hepatosplenomegaly; bowel sounds minimal , soft EXTREMITIES: No clubbing, cyanosis, or edema. SKIN: Normal; no rash; no jaundice. POLICE CADET: No focal deficits; drowsy, but awakens, oriented times three. (Bekah Lund) Assessment and Plan Plan Assessment /History - Acute pancreatitis initiallysevere sharp constant epigastric abdominal pain that shoots straight to the back area approx X one day. elevated AST/ALT elevated at 193/196 which is new from prior, Elevated Bilirubin continues elevated 2.4 [place] [address] on admission, now decreased to 520. US 11/24/17 showed dilated common bile duct at 10mm. Cholelithiasis with borderline wall thickening without pericholecystic fluid. MRCP negative for any findings - Elevated lipase- no alcohol intake, no hx of pancreatitis - Leukocytosis- secondary to above, trending at 11.7 - Gallstones- Appreciate GS input. cholecystectomy today HGB stable at 14.1 Plan: - NPO for now, monitor tolerance post op. Will increase to clear liquids this pm. - Simin today/GS, No complications - Monitor labs - Supportive care - Discussed increase bed activity with turning, coughing, deep breathing to facilitate passing of flatus. - Bowel regimen with stool softeners and Laxatives as needed. - Patient seen and examined by Dr. Lemus and myself and this note is written on her behalf. (Bekah Lund) Bekah Lund Nov 27, 2017 15:32 Agustina Lemus MD Nov 27, 2017 21:28
[2017-11-27] MEDS ORDERED: *ONDANSETRON 4 MG VIAL PERIprocedural Use ONLY ONE (15:38)
[2017-11-27 16:40] VITALS: BP 132/83; PULSE 106; RESP 19; TEMP 96.9; O2SAT 94
[2017-11-27] MEDS: MORPHINE SULFATE 2 MG/ML INJ IV PUSH PRN (17:11)
[2017-11-27 20:00] VITALS: BP 135/92; PULSE 110; RESP 20; TEMP 97.7; O2SAT 91
--- NOTE | 2017-11-27 22:46 | MP ---
cc: ADAM ORNELAS MD DATE OF SURGERY: 11/27/2017 PREOPERATIVE DIAGNOSIS: Acute calculous cholecystitis, acute pancreatitis. POSTOPERATIVE DIAGNOSIS: Acute calculous cholecystitis, acute pancreatitis. PROCEDURE: Laparoscopic cholecystectomy. SURGEON: Dr. Ornelas ANESTHESIA: General. ESTIMATED BLOOD LOSS: 50 cc. DESCRIPTION OF PROCEDURE: The patient prepped and draped in the usual fashion. Supraumbilical incision made, deepened down through the fascia under direct vision. Constantino cannula is placed and abdomen insufflated with CO2. The patient positioned in reverse Trendelenburg with a left tilt. The 30 degrees camera inserted and the abdomen visualized. Using the camera vision, the subxiphoid and two right upper quadrant ports were placed and the gallbladder visualized. There is omentum stuck to the gallbladder and gallbladder seems to be acutely inflamed with some greenish red hue on it. The omentum is carefully teased down, then the gallbladder is grasped with alligator clamps, elevated. Cystic duct and cystic artery carefully dissected with [place] dissector. After defining the liver plate of the gallbladder, both of them transected with Endoshears and then the gallbladder is taken off the liver bed with J hook, delivered through a subumbilical incision using EndoCatch bag. The area irrigated with copious amounts of saline. Meticulous hemostasis assured. A 7 flat ANAHI placed in the area and instruments withdrawn. Incisions were closed with 0 Vicryl and 4-0 Monocryl, Benzoin and Steri-Strips applied. The patient tolerated the procedure well. Adam PAVON/RASHEL /3:45 PM /10:31 PM
[2017-11-28] VITALS: BP 127/72; PULSE 94; RESP 20; TEMP 98.1; O2SAT 96
[2017-11-28] MEDS: D5-1/2 NS + KCL 20 MEQ INJ 1,000 ML IV SCH ×2 (00:08→13:09)
[2017-11-28] MEDS: oxyCODONE/ACETAMINOPHEN 10 MG/325 MG TAB PO PRN ×2 (01:44→08:30)
[2017-11-28 04:00] VITALS: BP 125/67; PULSE 98; RESP 20; TEMP 98; O2SAT 95
[2017-11-28 06:18] LABS: HEMATOCRIT 39.6 % (39.0-51.0); HEMOGLOBIN 14.1 GM/DL (13.0-17.0); MEAN CELL VOLUME 87.3 FL (80.0-100.0); MEAN CORPUSCULAR HGB CONC 35.5 % (32.0-36.0); MEAN PLATELET VOLUME 8.5 FL (7.0-11.0); PLATELET COUNT 240 TH/MM3 (150-450); RED BLOOD COUNT 4.54 MIL/MM3 (4.50-5.90); RED CELL DISTRIBUTION WIDTH 12.6 % (11.6-17.2)
[2017-11-28 06:41] LABS: ALBUMIN 2.2 GM/DL (3.4-5.0); ALT (GPT) 55 U/L (12-78); AST (GOT) 24 U/L (15-37); BICARBONATE 28.1 MEQ/L (21.0-32.0); BLOOD UREA NITROGEN 8 MG/DL (7-18); CALCIUM 9.3 MG/DL (8.5-10.1); CHLORIDE 104 MEQ/L (98-107); CREATININE 0.87 MG/DL (0.60-1.30); GLOMERULAR FILTRATION RATE 111 ML/MIN (>89); GLUCOSE,RANDOM 116 MG/DL (74-106); SODIUM (NA) 139 MEQ/L (136-145)
[2017-11-28 06:45] LABS: ALKALINE PHOSPHATASE 119 U/L (45-117); TOTAL BILIRUBIN ADULT 1.4 MG/DL (0.2-1.0); TOTAL PROTEIN 7.2 GM/DL (6.4-8.2)
[2017-11-28 08:00] VITALS: BP 121/79; PULSE 94; RESP 18; TEMP 98; O2SAT 96
[2017-11-28 08:22] VITALS: O2SAT 95
[2017-11-28] MEDS: SODIUM CHLORIDE 0.9% FLUSH 10 ML FLUSH IV FLUSH SCH (08:30)
[2017-11-28] MEDS: DOCUSATE SODIUM 50 MG/SENNA 8.6 MG TAB PO SCH (08:30)
--- NOTE | 2017-11-28 09:15 | HHI.PR ---
Subjective Remarks in no acute distress. has mild RUQ pain. no nausea or vomiting. afebrile today. Objective Vitals Vital Signs Date Time Temp Pulse Resp B/P (MAP) Pulse Ox O2 Delivery O2 Flow Rate FiO2 11/28/17 08:22 95 11/28/17 08:00 98.0 94 18 121/79 (93) 96 11/28/17 04:00 98.0 98 20 125/67 (86) 95 11/28/17 00:00 98.1 94 20 127/72 (90) 96 11/27/17 20:00 97.7 110 20 135/92 (106) 91 11/27/17 16:40 96.9 106 19 132/83 (99) 94 11/27/17 16:20 110 16 140/80 (100) 93 Nasal Cannula 2 11/27/17 16:00 111 16 146/76 (99) 93 Nasal Cannula 2 11/27/17 15:45 112 16 137/71 (93) 93 Nasal Cannula 2 11/27/17 15:29 97.9 119 16 138/83 (101) 94 Nasal Cannula 2 11/27/17 12:51 99.3 11/27/17 12:15 101.0 I/O 11/27/17 11/27/17 11/27/17 11/28/17 11/28/17 11/28/17 07:00 15:00 23:00 07:00 15:00 23:00 Intake Total 1000 ml 2060 ml 1000 ml Output Total 960 ml 45 ml Balance 1000 ml 1100 ml 955 ml Intake Oral 60 ml IV Total 1000 ml 1000 ml Other 2000 ml Output Urine Total 600 ml Drainage Total 310 ml 45 ml Estimated Blood Loss 50 ml # Voids 5 # Bowel Movements 0 Result Diagram: 11/28/17 0538 11/28/17 0538 Imaging Last Impressions Gall Bladder Ultrasound 11/24/17 0644 Signed Impressions: Service Date/Time: Friday, November 24, 2017 07:45 - CONCLUSION: 1. Cholelithiasis with borderline wall thickening. 2. Common bile duct is dilated. Chance Ragsdale MD Cholangiopancreatography MRI 11/24/17 0000 Signed Impressions: Service Date/Time: Friday, November 24, 2017 09:55 - CONCLUSION: 1. Multiple gallstones. 2. Normal common bile duct. No choledocholithiasis. 3. Fluid in the upper abdomen including the retroperitoneum likely from pancreatitis. Chance Ragsdale MD Objective Remarks GENERAL: This is a well-nourished, well-developed patient, in no apparent distress. CARDIOVASCULAR: Regular rate and regular rhythm without murmurs, gallops, or rubs. RESPIRATORY: Clear to auscultation. Breath sounds equal bilaterally. No wheezes , rales, or rhonchi. GASTROINTESTINAL: Abdomen soft, mild epigastric tenderness, nondistended. Normal, active bowel sounds-drain in place. MUSCULOSKELETAL: Extremities without clubbing, cyanosis, or edema. NEURO: Alert & Oriented x4 to person, place, time, situation. Moves all ext x4 Procedures laparoscopic cholecystectomy. Medications and IVs Inpatient Medications Acetaminophen 100 ml @ 400 mls/hr NURSE IV ; Start 11/27/17 at 13:00; Stop at 18:00; Status DC Acetaminophen (Tylenol) 650 mg Q6H PRN PO PAIN SCALE 1 TO 2; Start 11/24/17 at 08:45 Al Hydrox/Mg Hydrox/Simethicone (Mag-Al Plus Susp Liq) 30 ml ONCE ONCE PO Last administered on 11/24/17at 06:17; Start 11/24/17 at 06:00; Stop 11/24/17 at 06: 01; Status DC Aprepitant (Emend) 40 mg NURSE PO ; Start 11/27/17 at 13:00; Stop 11/27/17 at 18:00; Status DC Bisacodyl (Dulcolax Supp) 10 mg DAILY PRN RECTAL SEVERE CONSITIPATION; Start at 08:45 Cefazolin Sodium (Ancef Inj) 2,000 mg ONCE ONCE IV Last administered on at 14:30; Start 11/27/17 at 14:30; Stop 11/27/17 at 15:56; Status DC Chlorhexidine Gluconate (Chlorhexidine 2% Cloth) 3 pack NURSE PRN TOPICAL SEE LABEL COMMENTS; Start 11/26/17 at 22:00; Stop 11/29/17 at 21:59 Lactated Ringer's 1,000 ml @ 30 mls/hr Q24H PRN IV SEE LABEL COMMENTS; Start at 22:00; Stop 11/29/17 at 21:59 Lactulose (Lactulose Liq) 30 ml DAILY PRN PO SEVERE CONSITIPATION; Start at 08:45 Lidocaine HCl (Xylocaine 2% Viscous) 15 ml ONCE ONCE PO Last administered on at 06:18; Start 11/24/17 at 06:00; Stop 11/24/17 at 06:01; Status DC Magnesium Hydroxide (Milk Of Magnesia Liq) 30 ml Q12H PRN PO Mild constipation ; Start 11/24/17 at 08:45 Metoclopramide HCl (Reglan Inj) 5 mg Q6H PRN IV PUSH NAUSEA OR VOMITING; Start 11/24/17 at 08:45 Miscellaneous Information ALL NURSING DEPARTME... UNSCH PRN .XX SEE LABEL COMMENTS; Start 11/27/17 at 15:30; Stop 11/28/17 at 15:29 Morphine Sulfate (Morphine Inj) 4 mg Q3H PRN IV PUSH BREAKTHROUGH PAIN Last administered on 11/26/17at 21:22; Start 11/24/17 at 08:45 Naloxone HCl (Narcan Inj) 0.4 mg UNSCH PRN IV PUSH SEE LABEL COMMENTS; Start at 08:45 Ondansetron HCl (Zofran Inj) 4 mg Q6H PRN IVP NAUSEA OR VOMITING Last administered on 11/27/17at 04:29; Start 11/24/17 at 08:45 Oxycodone/ Acetaminophen (Percocet 5-325 Mg) 1 tab Q6H PRN PO PAIN SCALE 3 TO 5; Start 11/24/17 at 08:45 Oxycodone/ Acetaminophen (Percocet 10-325 Mg) 1 tab Q6H PRN PO PAIN SCALE 6 TO 10 Last administered on 11/28/17at 08:30; Start 11/24/17 at 08:45 Potassium Chloride/Dextrose/ Sod Cl 1,000 ml @ 125 mls/hr Q8H IV ; Start at 08:41; Stop 11/24/17 at 08:48; Status DC Potassium Phosphate 15 mmol/ Sodium Chloride 155 ml @ 38.75 mls/ hr ONCE ONCE IV Last administered on 11/26/17at 12:25; Start 11/26/17 at 12:00; Stop 11/26/17 at 15:59; Status DC Povidone Iodine (Betadine 5% Antisepsis Kit) 1 applic NURSE PRN EACH NARE SEE LABEL COMMENTS; Start 11/26/17 at 22:00; Stop 11/29/17 at 21:59 Promethazine HCl (Phenergan Inj) 12.5 mg ONCE ONCE IM Last administered on 11/24at 07:40; Start 11/24/17 at 07:15; Stop 11/24/17 at 07:16; Status DC Senna/Docusate Sodium (Sarah-Colace) 1 tab BID PO Last administered on 11/28/17at 08:30; Start 11/24/17 at 09:00 Sennosides (Senokot) 17.2 mg Q12H PRN PO Moderate constipation; Start 11/24/17 at 08:45 Sodium Chloride (NS Flush) 2 ml BID IV FLUSH Last administered on 11/27/17at 09: 00; Start 11/24/17 at 09:00 A/P Problem List: (1) Acute pancreatitis ICD Code: K85.90 - Acute pancreatitis without necrosis or infection, unspecified (2) Abdominal pain ICD Code: R10.9 - Unspecified abdominal pain Status: Acute Assessment and Plan Assessment and Plan gallstone pancreatitis s/p laparoscopic cholecystectomy continue pain control. evaluated by GI. surgery following. Discharge Planning when cleared by surgery. Elpidoi Mendez MD Nov 28, 2017 09:15
--- NOTE | 2017-11-28 10:50 | PD.CAR.PN ---
CVT Progress Note Subjective/Hospital Course: Referral received Full consult to follow Patient with biliary pancreatitis currently in workup In the end will need cholecystectomy but clearly have to wait till pancreatitis calms down Thanks Vince 11/25/17 Patient with acute cholecystitis and cholelithiasis complicated by acute pancreatitis Abdomen is soft active bowel sounds no rebound or guarding Gallbladder is not palpable Like this and amylase nicely trending down. LFTs decreasing If patient progresses like this he'll be ready for laparoscopic cholecystectomy probably Sunday for I want to avoid aggravating pancreas unnecessarily Definitely patient needs to have laparoscopic cholecystectomy at this admission 11/26/17 Patient doing well abdomen soft active bowel sounds Direct bilirubin low indirect bilirubin slightly elevated Amylase and lipase normalizing Patient for laparoscopic cholecystectomy tomorrow It should be noted that the patient's with develop biliary problems and gallstones at this early age should preferably worked up for hereditary hyperbilirubinemia type hemolytic conditions either dose caused by erythrocyte structural abnormalities like thalassemia, spherocytosis, elliptocytosis, G6PD deficiency etc. or liver enzymatic disorders like Bella Carlos syndrome, Gilbert's disease etc. Is will not make any difference at this point and patient needs cholecystectomy however in the future if he develops hyperbilirubinemia at least we would have an idea as to an underlying cause 11/28/2017 Patient doing well at this time Incisions clean and dry Abdomen soft active bowel sounds DC ANAHI drain DC patient from my point today with follow-up in about 2-3 weeks in my office May shower and get incisions wet this afternoon Objective: Vital Signs Date Time Temp Pulse Resp B/P (MAP) Pulse Ox O2 Delivery O2 Flow Rate FiO2 11/28/17 08:22 95 11/28/17 08:00 98.0 94 18 121/79 (93) 96 11/28/17 04:00 98.0 98 20 125/67 (86) 95 11/28/17 00:00 98.1 94 20 127/72 (90) 96 11/27/17 20:00 97.7 110 20 135/92 (106) 91 11/27/17 16:40 96.9 106 19 132/83 (99) 94 11/27/17 16:20 110 16 140/80 (100) 93 Nasal Cannula 2 11/27/17 16:00 111 16 146/76 (99) 93 Nasal Cannula 2 11/27/17 15:45 112 16 137/71 (93) 93 Nasal Cannula 2 11/27/17 15:29 97.9 119 16 138/83 (101) 94 Nasal Cannula 2 11/27/17 12:51 99.3 11/27/17 12:15 101.0 Labs: Laboratory Tests Test 11/28/17 05:38 White Blood Count 14.0 TH/MM3 (4.0-11.0) Red Blood Count 4.54 MIL/MM3 (4.50-5.90) Hemoglobin 14.1 GM/DL (13.0-17.0) Hematocrit 39.6 % (39.0-51.0) Mean Corpuscular Volume 87.3 FL (80.0-100.0) Mean Corpuscular Hemoglobin 31.0 PG (27.0-34.0) Mean Corpuscular Hemoglobin Concent 35.5 % (32.0-36.0) Red Cell Distribution Width 12.6 % (11.6-17.2) Platelet Count 240 TH/MM3 (150-450) Mean Platelet Volume 8.5 FL (7.0-11.0) Blood Urea Nitrogen 8 MG/DL (7-18) Creatinine 0.87 MG/DL (0.60-1.30) Random Glucose 116 MG/DL (74-106) Total Protein 7.2 GM/DL (6.4-8.2) Albumin 2.2 GM/DL (3.4-5.0) Calcium Level 9.3 MG/DL (8.5-10.1) Alkaline Phosphatase 119 U/L (45-117) Aspartate Amino Transf (AST/SGOT) 24 U/L (15-37) Alanine Aminotransferase (ALT/SGPT) 55 U/L (12-78) Total Bilirubin 1.4 MG/DL (0.2-1.0) Sodium Level 139 MEQ/L (136-145) Potassium Level 4.4 MEQ/L (3.5-5.1) Chloride Level 104 MEQ/L (98-107) Carbon Dioxide Level 28.1 MEQ/L (21.0-32.0) Anion Gap 7 MEQ/L (5-15) Estimat Glomerular Filtration Rate 111 ML/MIN (>89) Lipase 337 U/L (73-393) Result Diagram: 11/28/17 0538 11/28/17 0538 Byron Martins MD Nov 28, 2017 10:50
[2017-11-28 12:00] VITALS: BP 125/75; PULSE 88; RESP 18; TEMP 98.6; O2SAT 97
--- NOTE | 2017-11-28 13:51 | HHI.DS ---
Discharge Summary Admission Date Nov 24, 2017 at 08:42 Discharge Date: Nov 28, 2017 Admitting Diagnosis Acute pancreatitis (1) Acute pancreatitis ICD Code: K85.90 - Acute pancreatitis without necrosis or infection, unspecified Diagnosis: Principal (2) Abdominal pain ICD Code: R10.9 - Unspecified abdominal pain Diagnosis: Principal Status: Acute Procedures laparoscopic cholecystectomy. Brief History - From Admission Patient is a 21-year-old male who presented to the emergency department with abdominal epigastric pain since 9:30 PM last night. Pain was constant and nonradiating AND very sharp. He had some nausea and then some vomiting at approximately 2 AM. Denied any fever or urinary issues. He has Been having this epigastric pain on and off but never had this bad as it was last night. Was evaluated in emergency room in about 9 months ago and Never followed up with GI as an outpatient. Has tried Protonix without any relief denies any previous abdominal surgeries. His LFTs are quite elevated his bilirubin was elevated and his lipase is VERY elevated. Was found to have pancreatitis. He was given Zofran morphine has been seen by GI and surgery We'll need his pancreatitis to calm down and then hopefully have surgery on Sunday Has already had an MRCP CBC/BMP: 11/28/17 0538 11/28/17 0538 Significant Findings Laboratory Tests Test 11/26/17 03:44 11/27/17 04:27 11/28/17 05:38 White Blood Count 11.7 TH/MM3 (4.0-11.0) 14.0 TH/MM3 (4.0-11.0) Neutrophils (%) (Auto) 77.9 % (16.0-70.0) Neutrophils # (Auto) 9.1 TH/MM3 (1.8-7.7) Phosphorus Level 1.6 MG/DL (2.5-4.9) Total Bilirubin 2.7 MG/DL (0.2-1.0) 2.4 MG/DL (0.2-1.0) 1.4 MG/DL (0.2-1.0) Direct Bilirubin 0.4 MG/DL (0.0-0.2) Indirect Bilirubin 2.3 MG/DL (0.0-0.8) Alanine Aminotransferase (ALT/SGPT) 79 U/L (12-78) Albumin 3.2 GM/DL (3.4-5.0) 3.1 GM/DL (3.4-5.0) 2.2 GM/DL (3.4-5.0) Amylase Level 333 U/L (25-115) Lipase 1153 U/L (73-393) 520 U/L (73-393) Blood Urea Nitrogen 6 MG/DL (7-18) Aspartate Amino Transf (AST/SGOT) 10 U/L (15-37) Sodium Level 135 MEQ/L (136-145) Random Glucose 116 MG/DL (74-106) Alkaline Phosphatase 119 U/L (45-117) Imaging Last Impressions Gall Bladder Ultrasound 11/24/17 0644 Signed Impressions: Service Date/Time: Friday, November 24, 2017 07:45 - CONCLUSION: 1. Cholelithiasis with borderline wall thickening. 2. Common bile duct is dilated. Chance Ragsdale MD Cholangiopancreatography MRI 11/24/17 0000 Signed Impressions: Service Date/Time: Friday, November 24, 2017 09:55 - CONCLUSION: 1. Multiple gallstones. 2. Normal common bile duct. No choledocholithiasis. 3. Fluid in the upper abdomen including the retroperitoneum likely from pancreatitis. Chance Ragsdale MD PE at Discharge GENERAL: This is a well-nourished, well-developed patient, in no apparent distress. CARDIOVASCULAR: Regular rate and regular rhythm without murmurs, gallops, or rubs. RESPIRATORY: Clear to auscultation. Breath sounds equal bilaterally. No wheezes , rales, or rhonchi. GASTROINTESTINAL: Abdomen soft, mild epigastric tenderness, nondistended. Normal, active bowel sounds-drain in place. MUSCULOSKELETAL: Extremities without clubbing, cyanosis, or edema. NEURO: Alert & Oriented x4 to person, place, time, situation. Moves all ext x4 Hospital Course patient was admitted with gallstone pancreatitis. he underwent laparoscopic cholecystectomy. he was evaluated by GI and general surgery and cleared by both for discharge with outpatient follow-up. Pt Condition on Discharge: Stable Discharge Disposition: Discharge Home Discharge Time: <= 30 minutes Discharge Instructions DIET: Follow Instructions for: Heart Healthy Diet, Low Fat Diet Activities you can perform: Regular-No Restrictions Elpidio Mendez MD Nov 28, 2017 13:51
== END 2017-11-28 14:51 | disposition home or self-care (01) | DRG 417 ==
LOC: NEPE 05:22 → NEDA 08:42 → N07B 10:29
PROVIDERS: ADMIT Internal Medicine; ATTEND Internal Medicine
PROC: 0FT44ZZ Resection of Gallbladder, Percutaneous Endoscopic Approach (ICD-10-PCS; principal; 2017-11-27 13:31)
DX: K80.00 Calculus of gallbladder with acute cholecystitis without obstruction (principal); K85.10 Biliary acute pancreatitis without necrosis or infection
CPT/HCPCS: 74181; 76377; 76705; 80053; 80061; 80076; 81001; 82150; 83690; 83735; 84100; 84439; 84443; 85025; 85027; 88304; 96361; 96372; 96374; 96375; 96376; J0131; J0330; J0690; J1100; J1170; J2270; J2405; J2550; J3010; J3480; J7030; J7120; J8501